=== PATIENT | female | born 1940 | race Caucasian/White ===

== ENCOUNTER → 2018-06-12 17:49 | Outpatient (CLI) | payer MEDICARE, BC, SELFPAY ==
[2018-06-12 23:14] LABS: TSH w/ Reflex to FT4 2.49 uIU/mL (0.47-4.68)
== END ==
PROVIDERS: PCP Family Medicine; Visit Provider Family Medicine
DX: L65.9 Nonscarring hair loss, unspecified (principal)
CPT/HCPCS: 36415; 84443

== ENCOUNTER → 2018-06-17 09:44 | Outpatient (CLI) | payer MEDICARE, BC, SELFPAY ==
--- NOTE | 2018-06-17 09:45 | DI.RAD.S_ITS ---
PROCEDURE: XR SHOULDER RT MIN 2V INDICATIONS: rt shoulder pain TECHNIQUE: 3 views of the shoulder were acquired. COMPARISON: None. FINDINGS: Bones: No fractures or dislocations. No suspicious bony lesions. Visualized ribs appear intact. Severe AC joint degeneration. There is also glenohumeral degenerative spurring. Soft tissues: No suspicious soft tissue calcifications. IMPRESSION: No fracture. Degenerative changes as above. Dictated by: Virgil Sadler M.D. on 06/17/2018 at 11:26 Approved by: Virgil Sadler M.D. on 06/17/2018 at 11:39
== END ==
PROVIDERS: PCP Family Medicine; Visit Provider Family Medicine
DX: M25.511 Pain in right shoulder (principal); M19.011 Primary osteoarthritis, right shoulder
CPT/HCPCS: 73030

== ENCOUNTER 2019-01-09 11:12 | Day surgery (SDC) | payer MEDICARE, BC, SELFPAY ==
[2019-01-08 11:35] VITALS: BMI 19.0
[2019-01-09] VITALS (15 sets, daily range): BP systolic 95–159; BP diastolic 51–76; PULSE 70–84; RESP 10–20; TEMP 36.8–37.5; O2SAT 93–98; BMI 17.2
[2019-01-09] MEDS: LACTATED RINGERS 1,000 ML 42 ML IV (12:07)
--- NOTE | 2019-01-09 12:42 | PM.PREOP ---
Pre-operative Note Interval Note History & Physical reviewed/Exam performed by Physician: Yes Changes to H&P: No
[2019-01-09] MEDS: CEFAZOLIN VIAL 1 GM in SODIUM CHLORIDE 0.9% 100 ML 200 ML IV (15:18)
[2019-01-09] MEDS: BUPIVACAINE 0.5% W/ EPI (PF) VIAL 30 ML INJ (15:54)
--- NOTE | 2019-01-09 16:16 | PM.OP.1 ---
Operative Date/Time/Diagnoses Date of procedure: 01/09/19 Time of procedure: 15:30 Pre-op diagnosis: Right distal radius fracture Post-op diagnosis: same Procedure & Clinicians Procedure: Open reduction internal fixation of a right distal radius fracture Same procedure as scheduled: Yes Indications: Right distal radius fracture Surgeon: Zain Montoya Computer Analyst Supervisor: Anabelle Santoyo Anesthesia Type: General Operative Notes Closure Type: primary Specimen(s): none sent Prosthetic devices, grafts, tissues, transplants, or devices: Arthrex distal radius plate Estimated Blood Loss (mL): 10 Blood products transfused: none Tourniquet time (min): 45 Procedure in detail: On date of service, patient was met in the holding area where the operative site was signed and witnessed by the OR staff. The surgery was once again discussed with the patient and any remaining questions or concerns were answered to the patient's full satisfaction. Time-out was performed verifying patient's name procedure and operative site. Patient was taken back to the operating theater and placed on the operating table in a supine position. Great care was taken to ensure that all bony prominences were appropriately padded. Well-padded tourniquet was placed up along the upper extremity. Another time-out was performed verifying patient's name, procedure, and operative site. The upper extremity was then prepped and draped in the normal sterile fashion. Esmarch was used to exsanguinate the limb and the tourniquet was turned up to 250 mm of mercury. Fifteen blade was used to expose the distal radius. An incision was made over the FCR tendons. The FCR tendon was retracted and the floor of the tendon was opened with a 15 blade. The FPL tendon and muscle belly was retracted ulnarly giving us good visualization of the pronator quadratus. The pronator quadratus was excised off the distal radius using the 15 blade and then finished with a periosteal elevator. Next the brachia radialis attachment to the radial styloid was released to help with overall reduction. Retractors were placed allowing us good visualization of the distal radius as well as the shaft. A reduction maneuver was performed and a K-wire was placed holding a provisional reduction of the intra-articular distal radius fracture. C-arm was brought in to verify overall reduction. Once we were satisfied with the overall reduction, a plate was placed and held provisionally with K-wires. C-arm was once again used to verify plate positioning as well as reduction. The plate was then fixated to the distal fragment using locking screws. Lateral C-arm views were used to verify that the screws were not intra-articular or broaching the dorsal cortex. At this point we are able to use the plate to help fine tune the overall reduction. Once we were satisfied with the overall reduction the plate was then secured to the shaft with a combination of locking and nonlocking screws. Final x-rays were obtained. The wound was copiously irrigated and closed in a layered fashion. The wrist and hand were cleaned dried dressed. Patient was placed into a splint and taken to the PACU in stable condition. Complications: none Condition: stable Disposition: PACU Plan for aftercare: No restrictions of range of motion of the fingers. When patient is placed in the removable brace she can begin range of motion exercises of the wrist.
[2019-01-09] MEDS: fentaNYL 100 MCG/2 ML INJ 50 MCG IV ×4 (16:51→17:36)
[2019-01-09] MEDS: OXYCODONE IR 5 MG TABLET PO (17:09)
== END 2019-01-09 19:00 | disposition home or self-care (01) ==
PROVIDERS: PCP Family Medicine; Visit Provider Orthopaedic Surgery
PROC: (CPT 25608; principal; 2019-01-09 15:15)
DX: S52.571A Other intraarticular fracture of lower end of right radius, initial encounter for closed fracture (principal); W19.XXXA Unspecified fall, initial encounter
CPT/HCPCS: 25608; J0690; J1100; J2405; J2704; J3010

== ENCOUNTER → 2019-06-05 11:28 | Outpatient (CLI) | payer MEDICARE, BC, SELFPAY ==
--- NOTE | 2019-06-05 | DI.MG.S_ITS ---
BILATERAL DIGITAL SCREENING MAMMOGRAM 3D/2D WITH CAD: 06/05/2019 CLINICAL: Routine screening. Comparison is made to exams dated: 05/30/2017 mammogram, 05/20/2015 mammogram, and 10/30/2012 mammogram - [facility]. The tissue of both breasts is heterogeneously dense. This may lower the sensitivity of mammography. Current study was also evaluated with a Computer Aided Detection (CAD) system. No significant masses, calcifications, or other findings are seen in either breast. There has been no significant interval change. IMPRESSION: NEGATIVE There is no mammographic evidence of malignancy. A 1 year screening mammogram is recommended. This exam was interpreted at Station ID: [id number]. NOTE: For mammograms, a report in lay terms will be sent to the patient. Approximately 15% of breast malignancies will not be visualized mammographically. In the management of a palpable breast mass, a negative mammogram must not discourage biopsy of a clinically suspicious lesion. Electronically Signed By: Leonardo porter/ruthie:06/05/2019 14:49:04 letter sent: Normal Exam ACR BI-RADS Category 1: Negative 3341F
== END ==
PROVIDERS: PCP Family Medicine; Visit Provider Family Medicine
DX: Z12.31 Encounter for screening mammogram for malignant neoplasm of breast (principal)
CPT/HCPCS: 77063; 77067

== ENCOUNTER → 2019-06-12 08:40 | Outpatient (CLI) | payer MEDICARE, BC, SELFPAY ==
[2019-06-12 09:21] LABS: Add Manual Diff / Slide Review NO; Basophils Absolute Auto 0 /uL (0-100); Eosinophils Absolute Auto 200 /uL (0-450); Eosinophils Percent Auto 3.5 % (2-4); Hematocrit 43.8 % (36-46); Hemoglobin 14.8 g/dL (12.0-16.0); Lymphocytes Absolute Auto 1700 /uL (1100-4500); Lymphocytes Percent Auto 34.8 % (25-40); Mean Corpuscular HGB Conc 33.9 % (30-36); Mean Corpuscular Hemoglobin 31.6 PG (26-34); Mean Corpuscular Volume 93.3 fL (80-100); Monocytes Absolute Auto 400 /uL (0-900); Monocytes Percent Auto 8.4 % (3-14); Neutrophils Absolute Auto 2500 /uL (1500-7000); Neutrophils Percent Auto 52.3 % (50-75); Platelet Count 264 X10^3/uL (150-400); Red Blood Cell Count 4.69 X10^6/uL (4.0-5.2); White Blood Cell Count 4.8 X10^3/uL (4.5-11.0)
[2019-06-12 09:38] LABS: Alanine Aminotransferase 18 IU/L (<35); Albumin 4.4 g/dL (3.5-5.0); Albumin Globulin Ratio 1.5 (1.0-2.8); Alkaline Phosphatase 69 U/L (38-126); Aspartate Aminotransferase 35 IU/L (14-36); Bilirubin Total 0.6 mg/dL (0.2-1.3); Blood Urea Nitrogen 16 mg/dL (7-17); Calcium 10.4 mg/dL (8.4-10.2); Carbon Dioxide 32 mmol/L (22-32); Chloride 106 mmol/L (98-107); Cholesterol 272 mg/dL (140-199); Estimated Glomerular Filt Rate > 60.0 mL/min (>60); Glucose 83 mg/dL (80-110); HDL Cholesterol 101 mg/dL (40-60); HEMOLYSIS < 15 (0-50); LDL Cholesterol Calculated 162 mg/dL (<100); Potassium 4.6 mmol/L (3.4-5.1); Sodium 143 mmol/L (137-145); Total Protein 7.4 g/dL (6.3-8.2); Triglycerides 45 mg/dL (35-150)
[2019-06-12 10:08] LABS: TSH w/ Reflex to FT4 3.48 uIU/mL (0.47-4.68)
== END ==
PROVIDERS: PCP Family Medicine; Visit Provider Family Medicine
DX: E78.5 Hyperlipidemia, unspecified (principal)
CPT/HCPCS: 36415; 80053; 80061; 84443; 85025

== ENCOUNTER → 2020-06-15 13:01 | Outpatient (CLI) | payer MEDICARE, BC, SELFPAY ==
[2020-06-15 13:55] LABS: Add Manual Diff / Slide Review NO; Basophils Absolute Auto 100 /uL (0-100); Eosinophils Absolute Auto 400 /uL (0-450); Eosinophils Percent Auto 3.1 % (2-4); Hematocrit 39.1 % (36-46); Lymphocytes Absolute Auto 1100 /uL (1100-4500); Lymphocytes Percent Auto 9.1 % (25-40); Mean Corpuscular HGB Conc 33.1 % (30-36); Mean Corpuscular Hemoglobin 30.5 PG (26-34); Mean Corpuscular Volume 92.2 fL (80-100); Monocytes Absolute Auto 600 /uL (0-900); Monocytes Percent Auto 5.3 % (3-14); Neutrophils Absolute Auto 9600 /uL (1500-7000); Neutrophils Percent Auto 81.5 % (50-75); Platelet Count 279 X10^3/uL (150-400); Red Blood Cell Count 4.24 X10^6/uL (4.0-5.2); Red Cell Distribution Width 13.6 % (11.6-14.8); White Blood Cell Count 11.7 X10^3/uL (4.5-11.0)
[2020-06-15 14:12] LABS: Alanine Aminotransferase 16 IU/L (<35); Albumin 3.8 g/dL (3.5-5.0); Albumin Globulin Ratio 1.2 (1.0-2.8); Alkaline Phosphatase 84 U/L (38-126); Aspartate Aminotransferase 27 IU/L (14-36); BUN Creatinine Ratio 25.8 (6-22); Bilirubin Total 0.6 mg/dL (0.2-1.3); Blood Urea Nitrogen 24 mg/dL (7-17); C-Reactive Protein Quant 5.4 mg/dL (<1.0); Calcium 11.6 mg/dL (8.4-10.2); Carbon Dioxide 32 mmol/L (22-32); Chloride 102 mmol/L (98-107); Estimated Glomerular Filt Rate 58.2 mL/min (>60); Globulin 3.3 g/dL (1.7-4.1); Glucose 144 mg/dL (80-110); HEMOLYSIS < 15 (0-50); Potassium 3.9 mmol/L (3.4-5.1); Sodium 137 mmol/L (137-145); Total Protein 7.1 g/dL (6.3-8.2)
[2020-06-15 17:33] LABS: Erythrocyte Sedimentation Rate 36 MM/HR (0-20)
== END ==
PROVIDERS: PCP Family Medicine; Referring Provider Family Medicine; Visit Provider Family Medicine
DX: E78.5 Hyperlipidemia, unspecified (principal); M79.10 Myalgia, unspecified site
CPT/HCPCS: 36415; 80053; 85025; 85651; 86140

== ENCOUNTER → 2020-06-29 08:15 | Outpatient (CLI) | payer MEDICARE, BC, SELFPAY ==
[2020-06-29 09:20] LABS: Alanine Aminotransferase 18 IU/L (<35); Albumin 3.4 g/dL (3.5-5.0); Albumin Globulin Ratio 1.1 (1.0-2.8); Alkaline Phosphatase 83 U/L (38-126); Aspartate Aminotransferase 21 IU/L (14-36); BUN Creatinine Ratio 23.3 (6-22); Bilirubin Total 0.4 mg/dL (0.2-1.3); Blood Urea Nitrogen 20 mg/dL (7-17); Calcium 10.3 mg/dL (8.4-10.2); Carbon Dioxide 34 mmol/L (22-32); Chloride 103 mmol/L (98-107); Cholesterol 240 mg/dL (140-199); Estimated Glomerular Filt Rate > 60.0 mL/min (>60); Globulin 3.1 g/dL (1.7-4.1); Glucose 81 mg/dL (80-110); HDL Cholesterol 90 mg/dL (40-60); HEMOLYSIS < 15 (0-50); LDL Cholesterol Calculated 135 mg/dL (<100); Potassium 4.4 mmol/L (3.4-5.1); Sodium 138 mmol/L (137-145); Total Protein 6.5 g/dL (6.3-8.2); Triglycerides 77 mg/dL (35-150)
[2020-06-30 11:36] LABS: Calcium 10.4 mg/dL (8.7-10.3); Parathyroid Hormone, Intact 44 pg/mL (15-65)
== END ==
PROVIDERS: PCP Family Medicine; Referring Provider Family Medicine; Visit Provider Family Medicine
DX: E83.52 Hypercalcemia (principal); E78.5 Hyperlipidemia, unspecified
CPT/HCPCS: 36415; 80053; 80061; 82310; 83970

== ENCOUNTER → 2020-08-07 08:57 | Outpatient (CLI) | payer MEDICARE, BC, SELFPAY ==
--- NOTE | 2020-08-07 | DI.MG.S_ITS ---
BILATERAL DIGITAL SCREENING MAMMOGRAM 3D/2D WITH CAD: 08/07/2020 CLINICAL: Routine screening. Comparison is made to exams dated: 06/05/2019 mammogram and 05/30/2017 mammogram - [facility]. The tissue of both breasts is heterogeneously dense. This may lower the sensitivity of mammography. Current study was also evaluated with a Computer Aided Detection (CAD) system. No significant masses, calcifications, or other findings are seen in either breast. There has been no significant interval change. IMPRESSION: NEGATIVE There is no mammographic evidence of malignancy. A 1 year screening mammogram is recommended. This exam was interpreted at Station ID: [id number]. NOTE: For mammograms, a report in lay terms will be sent to the patient. Approximately 15% of breast malignancies will not be visualized mammographically. In the management of a palpable breast mass, a negative mammogram must not discourage biopsy of a clinically suspicious lesion. Electronically Signed By: Janusz hargrove/ruthie:08/09/2020 09:34:49 letter sent: Normal Exam ACR BI-RADS Category 1: Negative [id number]
== END ==
PROVIDERS: PCP Family Medicine; Referring Provider Family Medicine; Visit Provider Family Medicine
DX: Z12.31 Encounter for screening mammogram for malignant neoplasm of breast (principal)
CPT/HCPCS: 77063; 77067

== ENCOUNTER → 2021-07-01 08:22 | Outpatient (CLI) | payer MEDICARE, BC, SELFPAY ==
[2021-07-01 09:06] LABS: Add Manual Diff / Slide Review NO; Basophils Absolute Auto 100 /uL (0-100); Basophils Percent Auto 1.2 % (0-2); Eosinophils Absolute Auto 200 /uL (0-450); Eosinophils Percent Auto 3.5 % (2-4); Hematocrit 42.3 % (36-46); Hemoglobin 14.1 g/dL (12.0-16.0); Lymphocytes Absolute Auto 1500 /uL (1100-4500); Lymphocytes Percent Auto 32.5 % (25-40); Mean Corpuscular HGB Conc 33.4 % (30-36); Mean Corpuscular Hemoglobin 30.7 PG (26-34); Monocytes Absolute Auto 400 /uL (0-900); Monocytes Percent Auto 8.2 % (3-14); Neutrophils Absolute Auto 2500 /uL (1500-7000); Neutrophils Percent Auto 54.6 % (50-75); Platelet Count 299 X10^3/uL (150-400); Red Cell Distribution Width 14.2 % (11.6-14.8); White Blood Cell Count 4.6 X10^3/uL (4.5-11.0)
[2021-07-01 09:24] LABS: Alanine Aminotransferase 12 IU/L (<35); Albumin Globulin Ratio 1.4 (1.0-2.8); Alkaline Phosphatase 124 U/L (38-126); Aspartate Aminotransferase 26 IU/L (14-36); BUN Creatinine Ratio 23.8 (6-22); Bilirubin Total 0.8 mg/dL (0.2-1.3); Blood Urea Nitrogen 19 mg/dL (7-17); Calcium 10.8 mg/dL (8.4-10.2); Carbon Dioxide 30 mmol/L (22-32); Chloride 104 mmol/L (98-107); Cholesterol 278 mg/dL (140-199); Estimated Glomerular Filt Rate > 60.0 mL/min (>60); Globulin 2.9 g/dL (1.7-4.1); Glucose 88 mg/dL (80-110); HDL Cholesterol 98 mg/dL (40-60); HEMOLYSIS < 15 (0-50); LDL Cholesterol Calculated 165 mg/dL (<100); Potassium 4.5 mmol/L (3.4-5.1); Sodium 139 mmol/L (137-145); Total Protein 6.9 g/dL (6.3-8.2); Triglycerides 76 mg/dL (35-150)
== END ==
PROVIDERS: PCP Family Medicine; Referring Provider Family Medicine; Visit Provider Family Medicine
DX: E78.2 Mixed hyperlipidemia (principal); E83.52 Hypercalcemia
CPT/HCPCS: 36415; 80053; 80061; 85025

== ENCOUNTER 2022-05-09 16:10 | Emergency (ER) | payer MEDICARE, BC, SELFPAY ==
[2022-05-09] VITALS (11 sets, daily range): BP systolic 122–173; BP diastolic 58–84; PULSE 65–84; RESP 18–33; TEMP 37.2; O2SAT 95–98
--- NOTE | 2022-05-09 16:26 | DI.RAD.S_ITS ---
PROCEDURE: XR CHEST 1V INDICATIONS: chest pain TECHNIQUE: One view of the chest was acquired. COMPARISON: None. FINDINGS: Surgical changes and devices: None. Lungs and pleura: Lungs are clear. No pleural effusions or pneumothorax. Mediastinum: Mediastinal contours appear normal. Heart size is normal. Bones and chest wall: No suspicious bony lesions. Overlying soft tissues appear unremarkable. IMPRESSION: No acute cardiopulmonary process demonstrated radiographically. Dictated by: Nahum Rico M.D. on 05/09/2022 at 16:53 Approved by: Nahum Rico M.D. on 05/09/2022 at 16:53
[2022-05-09 16:38] LABS: INR 1.1 (0.9-1.3)
[2022-05-09 16:40] LABS: Add Manual Diff / Slide Review NO; Basophils Absolute Auto 100 /uL (0-100); Eosinophils Absolute Auto 100 /uL (0-450); Eosinophils Percent Auto 1.6 % (2-4); Hematocrit 39.6 % (36-46); Hemoglobin 13.3 g/dL (12.0-16.0); Lymphocytes Absolute Auto 1300 /uL (1100-4500); Mean Corpuscular HGB Conc 33.7 % (30-36); Mean Corpuscular Hemoglobin 30.4 PG (26-34); Mean Corpuscular Volume 90.2 fL (80-100); Monocytes Absolute Auto 400 /uL (0-900); Monocytes Percent Auto 6.2 % (3-14); Neutrophils Absolute Auto 4200 /uL (1500-7000); Neutrophils Percent Auto 69.2 % (50-75); Platelet Count 255 X10^3/uL (150-400); Red Blood Cell Count 4.39 X10^6/uL (4.0-5.2); Red Cell Distribution Width 13.3 % (11.6-14.8); White Blood Cell Count 6.1 X10^3/uL (4.5-11.0)
[2022-05-09 16:41] LABS: PTT Partial Thromboplastin Tim 32 SECONDS (26-36)
[2022-05-09 16:46] LABS: Alanine Aminotransferase 17 IU/L (<35); Albumin 4.1 g/dL (3.5-5.0); Albumin Globulin Ratio 1.2 (1.0-2.8); Alkaline Phosphatase 71 U/L (38-126); Aspartate Aminotransferase 30 IU/L (14-36); BUN Creatinine Ratio 26.4 (6-22); Bilirubin Total 0.4 mg/dL (0.2-1.3); Blood Urea Nitrogen 19 mg/dL (7-17); Calcium 10.1 mg/dL (8.4-10.2); Carbon Dioxide 31 mmol/L (22-32); Chloride 101 mmol/L (98-107); Creatine Kinase 55 U/L (30-135); Estimated Glomerular Filt Rate > 60 mL/min (>60); Globulin 3.4 g/dL (1.7-4.1); Glucose 115 mg/dL (80-110); HEMOLYSIS < 15 (0-50); Lipase 86 U/L (23-300); Magnesium 2.2 mg/dL (1.6-2.3); Potassium 3.7 mmol/L (3.4-5.1); Sodium 140 mmol/L (137-145); Total Protein 7.5 g/dL (6.3-8.2)
[2022-05-09 16:55] LABS: Troponin I < 0.012 ng/mL (0.01-0.034)
--- NOTE | 2022-05-09 22:33 | ED_ITS ---
HPI - Dizziness General Chief Complaint: Dizziness Stated Complaint: dizzy Time Seen by Provider: 05/09/22 22:29 Source: patient Mode of arrival: Ambulatory History of Present Illness HPI Narrative: Patient is an 81-year-old female without significant past medical history presenting today with ongoing dizziness. She says that she feels dizzy and lightheaded sometimes when she stands up. She is not dizzy or lightheaded while sitting. She denies any fever chills. She states that the room does not spin. She sometimes falls but has not fallen recently. It has really been ongoing for number of weeks but maybe is getting little bit worse. She was seen evaluated 5 days ago at a walk-in clinic for the same. She says that she has had some ongoing chest pressure but this has been a ongoing for a number of months in her PCP some blood only knows about it. She currently does not have any chest pain pressure or shortness of breath. She denies any nausea or vomiting, no fever chills abdominal pain. Related Data Home Medications Medication Instructions Recorded Confirmed Calcium 500 + D 1 tab PO QDAY 11/27/17 05/03/22 Fish Oil 1 cap PO QDAY 11/27/17 05/03/22 coenzyme Q10 30 mg capsule (Co 30 mg PO DAILY 09/08/19 05/03/22 Q-10) Previous Rx's Medication Instructions Recorded ipratropium bromide 21 mcg (0.03 2 spray intranasal BID #30 mL 09/27/20 %) nasal spray acyclovir 400 mg tablet 800 mg PO 3 X DAY #35 tabs 01/19/22 Allergies Allergy/AdvReac Type Severity Reaction Status Date / Time latex [LATEX] Allergy Severe LOCAL RASH Verified 05/03/22 10:39 Review of Systems Review of Systems Narrative: GENERAL: Denies chills, fatigue, malaise, fever, sweats, travel HEENT: Denies sinus pain, ear pain, sore throat, difficulty swallowing, neck pain RESPIRATORY: Denies dyspnea, cough, wheezing, hemoptysis, sputum. CARDIOVASCULAR: See HPI GASTROINTESTINAL: Denies nausea, vomiting, abdominal pain, diarrhea, constipation, melena. : Denies dysuria, frequency, incontinence, hematuria, urinary retention, flank pain. MUSCULOSKELETAL: Denies weakness, joint pain, or bony pain SKIN: No rash, no erythema, no pruritus NEUROLOGIC: see HPI PSYCHIATRIC: No concerning psychosocial issues. 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) (04/25/11) Right wrist fracture (01/04/19) Skin cancer (~1997) Surgical History Anesthesia History of facelift (1999) History of hand surgery (~1999) History of hand surgery (~1999) Status post colposcopy (2010) Family History Brother Brain aneurysm Father Heart attack Social History marital status: household members: spouse Smoking Status: Never smoker alcohol intake: current Smoking Status: Never smoker alcohol intake frequency: 0-2 drinks per day Substance Use Type: does not use Exam Initial Vital Signs Initial Vital Signs: Vital Signs Temperature 98.9 F 05/09/22 16:13 Pulse Rate 84 05/09/22 16:13 Respiratory Rate 18 05/09/22 16:13 Blood Pressure 133/64 05/09/22 16:13 Pulse Oximetry 98 05/09/22 16:13 Oxygen Delivery Method 05/09/22 16:13 GENERAL: 81-year-old female overall appears well appears younger than stated age and in no acute distress. HEENT: Head atraumatic,EOMI, pupils reactive, face symmetric, moist mucous membranes CARDIOVASCULAR: Regular rate and rhythm without murmurs, rubs or gallops. RESPIRATORY: Breath sounds equal bilaterally, no wheezes rales or rhonchi. ABDOMEN: Soft, nontender. Normoactive bowel sounds all 4 quadrants. No guarding or rebound. EXTREMITIES: Normal range of motion, no clubbing or edema. Neurovascularly intact NEUROLOGICAL: Alert and oriented x4.Normal gait and speech. Cranial nerves II through XII grossly intact. Good efuiog-wr-rdja, good vlgd-lr-dmvj, strength equal bilaterally, no dysarthria or aphasia, sensation in tact to soft touch bilaterally, no visual changes, no facial droop SKIN: Warm, dry, no laceration, no petechiae, no rashes or lesions. Scores NIH Stroke Scale Level of Conciousness: Alert, keenly responsive Ask month/age: Answers both questions correctly. Open/close eyes, close hand: Performs both tasks correctly Best gaze horizontal: Normal Visual sanchez: No visual loss Facial palsy: Normal symetrical movement Left arm drift: No drift for full 10 sec Right arm drift: No drift for full 10 sec Left leg drift: No drift for full 5 sec Right leg drift: No drift for full 5 sec Limb ataxia: Absent Sensory on face/arms/legs: Normal, no sensory loss Best language: No aphasia, normal Dysarthria: Normal Extinction or inattention: No abnormality Total NIH Stroke scale score: 0 Course Orders Ordered: ED Orders 05/09/22 22:41 CT head/brain wo con Stat 05/09/22 22:58 Trop I [Troponin I] Stat Vital Signs Vital signs: Vital Signs - 8 hr 05/09/22 22:30 05/09/22 22:33 05/09/22 22:33 Pulse Rate 69 66 Respiratory Rate 33 H 29 H Blood Pressure 143/66 H Pulse Oximetry 97 05/09/22 22:45 05/09/22 22:45 05/09/22 22:55 Pulse Rate 66 Respiratory Rate Blood Pressure 138/66 149/72 H Pulse Oximetry 95 05/09/22 22:55 05/09/22 23:00 05/09/22 23:00 Pulse Rate 70 Respiratory Rate 23 Blood Pressure 145/72 H Pulse Oximetry 97 97 MDM - Dizziness Lab Data Result diagrams: 05/09/22 16:22 05/09/22 16:22 Labs: Lab Results 05/09/22 05/09/22 05/09/22 Range/Units 16:22 16:22 16:22 WBC 6.1 (4.5-11.0) X10^3/uL RBC 4.39 (4.0-5.2) X10^6/uL Hgb 13.3 (12.0-16.0) g/dL Hct 39.6 (36-46) % MCV 90.2 (80-100) fL MCH 30.4 (26-34) PG MCHC 33.7 (30-36) % RDW 13.3 (11.6-14.8) % Plt Count 255 (150-400) X10^3/uL Neut % (Auto) 69.2 (50-75) % Lymph % (Auto) 22.0 L (25-40) % [place] % (Auto) 6.2 (3-14) % Eos % (Auto) 1.6 L (2-4) % Baso % (Auto) 1.0 (0-2) % Neut # (Auto) 4200 (7291-2949) /uL Lymph # (Auto) 1300 (2670-8501) /uL [place] # (Auto) 400 (0-900) /uL Eos # (Auto) 100 (0-450) /uL Baso # (Auto) 100 (0-100) /uL PT 13.0 H (10.1-12.7) SECONDS INR 1.1 (0.9-1.3) APTT 32 (26-36) SECONDS Sodium 140 (137-145) mmol/L Potassium 3.7 (3.4-5.1) mmol/L Chloride 101 (98-107) mmol/L Carbon Dioxide 31 (22-32) mmol/L BUN 19 H (7-17) mg/dL Creatinine 0.72 (0.52-1.04) mg/dL Estimated GFR > 60 (>60) mL/min BUN/Creatinine Ratio 26.4 H (6-22) Glucose 115 H (80-110) mg/dL Calcium 10.1 (8.4-10.2) mg/dL Magnesium 2.2 (1.6-2.3) mg/dL Total Bilirubin 0.4 (0.2-1.3) mg/dL AST 30 (14-36) IU/L ALT 17 (<35) IU/L Alkaline Phosphatase 71 (38-126) U/L Total Creatine Kinase 55 (30-135) U/L CK-MB (CK-2) TNP CK-MB (CK-2) Rel Index TNP Troponin I < 0.012 (0.01-0.034) ng/mL Total Protein 7.5 (6.3-8.2) g/dL Albumin 4.1 (3.5-5.0) g/dL Globulin 3.4 (1.7-4.1) g/dL Albumin/Globulin Ratio 1.2 (1.0-2.8) Lipase 86 (23-300) U/L 05/09/22 Range/Units 22:58 WBC (4.5-11.0) X10^3/uL RBC (4.0-5.2) X10^6/uL Hgb (12.0-16.0) g/dL Hct (36-46) % MCV (80-100) fL MCH (26-34) PG MCHC (30-36) % RDW (11.6-14.8) % Plt Count (150-400) X10^3/uL Neut % (Auto) (50-75) % Lymph % (Auto) (25-40) % [place] % (Auto) (3-14) % Eos % (Auto) (2-4) % Baso % (Auto) (0-2) % Neut # (Auto) (0201-1788) /uL Lymph # (Auto) (0453-4564) /uL [place] # (Auto) (0-900) /uL Eos # (Auto) (0-450) /uL Baso # (Auto) (0-100) /uL PT (10.1-12.7) SECONDS INR (0.9-1.3) APTT (26-36) SECONDS Sodium (137-145) mmol/L Potassium (3.4-5.1) mmol/L Chloride (98-107) mmol/L Carbon Dioxide (22-32) mmol/L BUN (7-17) mg/dL Creatinine (0.52-1.04) mg/dL Estimated GFR (>60) mL/min BUN/Creatinine Ratio (6-22) Glucose (80-110) mg/dL Calcium (8.4-10.2) mg/dL Magnesium (1.6-2.3) mg/dL Total Bilirubin (0.2-1.3) mg/dL AST (14-36) IU/L ALT (<35) IU/L Alkaline Phosphatase (38-126) U/L Total Creatine Kinase (30-135) U/L CK-MB (CK-2) CK-MB (CK-2) Rel Index Troponin I < 0.012 (0.01-0.034) ng/mL Total Protein (6.3-8.2) g/dL Albumin (3.5-5.0) g/dL Globulin (1.7-4.1) g/dL Albumin/Globulin Ratio (1.0-2.8) Lipase (23-300) U/L Imaging Data Chest x-ray: Radiologist's Impression: [address] [address] XRay Report Signed Patient: Mendy Matthews MR#: [id number] : 1940 Acct:[id number] Age/Sex: 81 / F Date of Service: 05/09/22 Loc: ED Accession Number: [id number] ?? Procedure: XR chest 1V Ordering Provider: Dania Palumbo D.O. PROCEDURE:? XR CHEST 1V ? INDICATIONS:? chest pain ? TECHNIQUE:? One view of the chest was acquired.? ? COMPARISON:? None. ? FINDINGS:? ? Surgical changes and devices:? None.? ? Lungs and pleura:? Lungs are clear.? No pleural effusions or pneumothorax.? ? Mediastinum:? Mediastinal contours appear normal.? Heart size is normal.? ? Bones and chest wall:? No suspicious bony lesions.? Overlying soft tissues appear unremarkable.? ? IMPRESSION:? No acute cardiopulmonary process demonstrated radiographically. ? ? Dictated by: Nahum Rico M.D. on 05/09/2022 at 16:53 ? ? ECG Data Interpretation: Normal sinus rhythm rate 79 [place] interval 160 QRS 74 QTC 408 T-wave inversion noted in lead 3 and AVF with out ST elevations new from previous EKG in 20 MDM Narrative Medical decision making narrative: Patient has been having ongoing symptoms for some time symptoms of dizziness was worse today. However it does seem to be quite positional she is able to sit in bed read a book currently in the emergency department. She was previously checked out the walk-in clinic. Head CT is negative she really has no focal deficits. Blood work is overall reassuring without sign of infection. However she has had some chest pressure but not having in the emergency department EKG does have some concerning T-wave inversions. She has no ST elevation no chest pain and 2- troponins. At this time I do recommend outpatient follow-up in regards his to this could she has had some ongoing chest discomfort. It is unclear what is causing her dizziness and lightheadedness however that to have also sound in chronic. At this time patient feels comfortable going. S Email sent to PCP in regards to the outpatient stress test Discharge Plan Departure Patient Disposition: Home Clinical Impression: Light-headed Instructions: DI for Dizziness-Nonvertigo Activity Restrictions/Additional Instructions: *You have been diagnosed with lightheaded *What to do: At this time workup in the emergency department overall reassuring. However EKG was slightly concerning and I do recommend an outpatient stress test. It is likely not causing her lightheadedness or dizzin ess. *Continue to take medications as directed *Follow up with your primary care provider in 2-3 days or call [phone] *Return to ER if you should have a increasing chest discomfort dizziness falling weakness numbness tingling or any new, worsening or concerning symptoms Prescriptions: No Action coenzyme Q10 [Co Q-10] 30 mg capsule 30 mg PO DAILY ipratropium bromide 0.03 % spray,non-aerosol 2 spray intranasal BID Qty: 30 1RF Rx Instructions: administer into each nostril acyclovir 400 mg tablet 800 mg PO 3 X DAY Qty: 35 3RF Calcium 500 + D tablet 1 tab PO QDAY Fish Oil capsule 1 cap PO QDAY Referrals: Nahum Valenzuela MD [Primary Care Provider] - Visit Report Forms: Patient Portal/API
--- NOTE | 2022-05-09 22:41 | DI.CT.S_ITS ---
PROCEDURE: CT HEAD/BRAIN WO CON INDICATIONS: dizzy for weeks TECHNIQUE: Noncontrast 4.5 mm thick angled axial sections acquired from the foramen magnum to the vertex, with coronal and sagittal reformats. For radiation dose reduction, the following was used: automated exposure control, adjustment of mA and/or kV according to patient size. COMPARISON: [facility] Outside Film, CT, CT HEAD WITHOUT CONTRAST, 01/04/2019, 18:44. FINDINGS: Image quality: Excellent. CSF spaces: Basal cisterns are patent. No extra-axial fluid collections. There is mild cerebral volume loss, with resultant ventricular and sulcal prominence. Brain: No intracranial hemorrhage, mass, or mass effect. There are subcortical, periventricular and deep white matter hypodensities consistent with mild chronic small vessel ischemic changes. The aldana-white matter junction appears preserved. There is intracranial internal carotid artery atherosclerosis. Skull and face: Calvarium and visualized facial bones appear intact, without suspicious lesions. Sinuses: Visualized sinuses and mastoids are clear. IMPRESSION: 1. No acute intracranial abnormality. 2. Mild chronic white matter small vessel ischemic changes and cerebral volume loss. Dictated by: Leonardo Ch M.D. on 05/09/2022 at 23:27 Approved by: Leonardo Ch M.D. on 05/09/2022 at 23:29
[2022-05-09 23:27] LABS: Troponin I < 0.012 ng/mL (0.01-0.034)
== END 2022-05-10 00:20 | disposition home or self-care (01) ==
PROVIDERS: Emergency Medicine; Emergency Provider Emergency Medicine; PCP Family Medicine
DX: R42 Dizziness and giddiness (principal); R07.9 Chest pain, unspecified
CPT/HCPCS: 36415; 70450; 71045; 80053; 82550; 83690; 83735; 84484; 85025; 85610; 85730; 93005; 93010; 99283; 99284

== ENCOUNTER → 2022-06-08 08:15 | Outpatient (CLI) | payer MEDICARE, BC, SELFPAY ==
--- NOTE | 2022-06-08 08:18 | DI.NM.S_ITS ---
PROCEDURE: NM LEANN PERF SPECT REST & STR Rest and exercise myocardial perfusion SPECT with gated imaging and ejection fraction RADIOPHARMACEUTICAL: 11.4 mCi Tc-99m sestamibi IV at rest and 25.2 mCi Tc-99m sestamibi IV at peak exercise. A [id number]-usjefsgd was performed. INDICATIONS: Chest pressure and T wave inversion TECHNIQUE: Radiopharmaceutical was injected at peak stress test, and also at rest. SPECT images were obtained. SPECT myocardial perfusion images were displayed in short axis, horizontal long axis, and vertical long axis views. Gated images were reviewed using [employer] software. COMPARISON: None. CARDIAC STRESS: A standard Andrew treadmill exercise tolerance test was performed by the patient under the supervision of an attending staff. The patient exercised for 7 minutes and 0 seconds; 10.1 METS; functional aerobic impairment (RINA) is -47%. Hemodynamic data: There is normal blood pressure and heart rate response to exercise stress. Patient achieved 104% of maximum predicted heart rate at peak exercise. Symptoms: Patient denied chest pain during exercise. EKG: No diagnostic EKG changes of ischemia; occasional PACs. FINDINGS: Raw data: There is good myocardial labeling by radiotracer. No significant motion artifacts. Bkpz-dv-qcqke ratio is 0.28 (normal is less than 0.38 for sestamibi tracer, and less than 0.50 for thallium tracer). Left ventricle function: Gated images demonstrate normal left ventricle wall thickening. No segmental wall motion abnormality. No transient ischemic dilation; TID is 0.78 (normal less than 1.3). The left ventricle resting end-diastolic volume is 73 mL. Left ventricle stress ejection fraction is 75%; normal values are above 45%. Myocardial perfusion: There is normal distribution of activity in the left and right ventricular myocardium. No fixed or reversible perfusion defects. IMPRESSION: Low risk study. No evidence of exercise-induced ischemia or scar on ECG or SPECT imaging. Normal left ventricular function. Normal hemodynamic response to exercise. Very good exercise capacity. Dictated by: Griselda Mccullough D.O. on 06/08/2022 at 15:52 Approved by: Griselda Mccullough D.O. on 06/08/2022 at 15:57
--- NOTE | 2022-06-08 08:18 | DI.ECHO.S_ITS ---
[place] [facility]---------+ [facility] +---------+ : : [address] : : : : [id number] : : : : Phone: [phone]+ Echocardiogram Report + + :Name: ALBERT NEELY Study Date: 06/08/2022 Height: 63 in : :[facility] ReadingLocation: Weight: 98 lb : : Gender: Female BSA: 1.4 m2 : :: 1940 Age: 82 yrs BP: 127/71 mmHg: :Reason For Study: CHEST PRESSURE AND T WAVE INVERSION : :Ordering Physician: YESIKA, : :JARED Performed By: Marianna Quiñonez : :Referring: JARED [place] : + + Interpretation Summary The ejection fraction is estimated to be 55-60%. There is mild mitral regurgitation. There is mild to moderate aortic regurgitation. There is mild to moderate tricuspid regurgitation. The right ventricular systolic pressure is estimated to be at least 30 mmHg based on an estimated right atrial pressure of 3 mm Hg. Compared to the prior echo study, there has been an increase in the severity of aortic regurgitation. Compared to the prior echo exam, there has been an increase in TR severity. Procedure: A two-dimensional transthoracic echocardiogram with color flow and Doppler was performed. The study quality was technically adequate. Comparison is made with the echocardiogram of 05/30/2017. The patient was in sinus rhythm with heart rates between 67-75 bpm during the exam. Left Ventricle: The left ventricle is normal in size and wall thickness. The ejection fraction is estimated to be 55-60%. Left ventricular wall motion is normal. Right Ventricle: The right ventricle is normal in size and function. Atria: The left atrial size is normal. Right atrial size is normal. There is no Doppler evidence for an interatrial shunt. Mitral Valve: There is mild mitral regurgitation. Aortic Valve: The aortic valve is trileaflet. The aortic valve opens well. There is no aortic valve stenosis. There is mild to moderate aortic regurgitation. Compared to the prior echo study, there has been an increase in the severity of aortic regurgitation. Tricuspid Valve: The tricuspid valve is normal in structure and function. There is mild to moderate tricuspid regurgitation. The right ventricular systolic pressure is estimated to be at least 30 mmHg based on an estimated right atrial pressure of 3 mm Hg. Compared to the prior echo exam, there has been an increase in TR severity. Pulmonic Valve: The pulmonic valve leaflets are thin and pliable; valve motion is normal. There is no pulmonic valvular regurgitation. Great Vessels: The aortic root is normal size. The dimensions of the ascending aorta are normal. The IVC is of normal diameter and collapses greater than 50% with a sniff. This suggests a low right atrial pressure of 3 mm Hg. Pericardium/ Pleura There is no pericardial effusion. There is no pleural effusion. MMode/2D Measurements & Calculations LVIDd: 4.7 cm LVOT diam: 2.3 cm LVIDs: 3.3 cm Ao root diam: 3.5 cm FS: 29.1 % asc Aorta Diam: 3.3 cm IVSd: 0.80 cm Ao Arch Diam (Prox Trans): 2.6 cm LVPWd: 0.66 cm LV figueroa. diameter/BSA (cm/m^2): 3.3 LV sys. diameter/BSA (cm/m^2): 2.3 LA A2 area: 13.5 cm2 RA long axis: 4.4 cm LA A4 area: 13.9 cm2 RA area: 14.5 cm2 LA length (vol): 4.2 cm RA vol: 40.5 ml LA vol: 37.5 ml RA : 28.4 ml/m2 LA vol index: 26.3 ml/m2 IVC diam: 0.81 cm RVD1 (basal): 3.3 cm RVD2 (mid): 2.4 cm TAPSE: 2.2 cm Doppler Measurements & Calculations Ao V2 max: 142.8 cm/sec LVOT Max Andres: 97.2 cm/sec Ao V2 mean: 87.8 cm/sec LV V1 max P.8 mmHg Ao max P.2 mmHg LV V1 VTI: 20.5 cm Ao mean P.6 mmHg JEANNE(I,D): 3.4 cm2 Ao V2 VTI: 24.7 cm JEANNE(V,D): 2.8 cm2 sev ratio: 0.83 JEANNE indexed to BSA (cm^2/m^2): 2.4 MV E max andres: 58.4 cm/sec TR max andres: 258.8 cm/sec MV A max andres: 69.6 cm/sec TR max P.8 mmHg MV E/A: 0.84 PA V2 max: 61.2 cm/sec Med Peak E' Andres: 7.3 cm/sec PA V2 mean: 43.8 cm/sec E/E' med: 8.0 PA mean P.86 mmHg Lat Peak E' Andres: 8.6 cm/sec PA pr(Accel): 27.6 mmHg E/E' lat: 6.8 E/e' average: 7.4 MV dec time: 0.21 sec SV(LVOT): 83.7 ml Reading Physician:03:10 PM
[2022-06-08 09:46] LABS: COVID19 -Nasal RAPID Negative (Negative)
== END ==
PROVIDERS: PCP Family Medicine; Referring Provider Family Medicine; Visit Provider Family Medicine
DX: R94.31 Abnormal electrocardiogram [ECG] [EKG] (principal); R07.89 Other chest pain; Z20.822 Contact with and (suspected) exposure to COVID-19; I08.3 Combined rheumatic disorders of mitral, aortic and tricuspid valves
CPT/HCPCS: 78452; 87635; 93017; 93306; A9502

== ENCOUNTER → 2022-07-05 07:13 | Outpatient (CLI) | payer MEDICARE, BC, SELFPAY ==
[2022-07-05 09:17] LABS: Cholesterol 255 mg/dL (140-199); HDL Cholesterol 61 mg/dL (40-60); LDL Cholesterol Calculated 171 mg/dL (<100); Triglycerides 113 mg/dL (35-150)
== END ==
PROVIDERS: PCP Family Medicine; Referring Provider Family Medicine; Visit Provider Family Medicine
DX: E78.5 Hyperlipidemia, unspecified (principal)
CPT/HCPCS: 36415; 80061

== ENCOUNTER 2022-07-30 20:46 | Emergency (ER) | payer MEDICARE, OTHER, SELFPAY ==
[2022-07-30 20:50] VITALS: BP 151/67; PULSE 87; RESP 16; TEMP 37.5; O2SAT 96; BMI 17.6
--- NOTE | 2022-07-30 22:51 | ED.LOWEXIN ---
HPI - Extremity Injury (Lower) General Chief Complaint: Extremity Injury, Lower Stated Complaint: right foot pain x2 days/ankle swollen Time Seen by Provider: 07/30/22 22:51 Source: patient Mode of arrival: Ambulatory Limitations: no limitations History of Present Illness HPI Narrative: This is an 82-year-old female comes in with complaint of right foot pain for the past 2 days. Patient states she noticed SundayJuly 28 that she started having pain on the underside of her foot in the soft tissue. She does not recall any injuries, she does not recall stepping on anything or hurting her foot in any way. Patient states since then the pain has persisted has gotten little bit worse and now she has some redness over the lateral portion of the foot and radiating over the top of the foot. Patient states she has not had similar symptoms in the past. She states she takes some vitamins daily but denies any prescription medications. She has had stem cell injections in her shoulder and knee for orthopedic purposes and hyaluronic acid in her right knee for orthopedic purposes. She denies numbness, tingling or weakness. She is pain with weight-bearing. She does not have any current suspicion for foreign body or noticed any cuts over the skin. Related Data Home Medications Medication Instructions Recorded Confirmed Calcium 500 + D 1 tab PO QDAY 11/27/17 06/13/22 coenzyme Q10 30 mg capsule (Co 30 mg PO DAILY 09/08/19 06/13/22 Q-10) Previous Rx's Medication Instructions Recorded acyclovir 400 mg tablet 800 mg PO 3 X DAY #35 tabs 01/19/22 clindamycin HCl 300 mg capsule 300 mg PO QID #28 caps 07/30/22 Allergies Allergy/AdvReac Type Severity Reaction Status Date / Time latex [LATEX] Allergy Severe LOCAL RASH Verified 06/19/22 13:35 Pollen, dust Allergy Mild Sneezing Uncoded 06/19/22 13:36 Review of Systems Review of Systems ROS Unobtainable: All systems reviewed & are unremarkable except as noted in HPI and below Patient History Medical History Acne (~1949) Anemia (~1949) Cataract (~2011) Chicken pox (~1944) Hayfever (~1944) Hearing loss (~2012) Herpes (~1979) Laceration Measles (~1945) Neck pain Osteoarthritis (~2003) 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) (04/25/11) Right wrist fracture (01/04/19) Skin cancer (~1997) Surgical History Anesthesia History of facelift (1999) History of hand surgery (~1999) History of hand surgery (~1999) Status post colposcopy (2010) Family History Brother Brain aneurysm Father Heart attack Social History marital status: household members: spouse Smoking Status: Never smoker alcohol intake: current Smoking Status: Never smoker alcohol intake frequency: 0-2 drinks per day Substance Use Type: does not use Exam Narrative Exam Narrative: GENERAL: Alert and oriented x three, elderly female in mild distress HEENT: Head normocephalic, atraumatic, EOMI, pupils reactive, face symmetric, moist mucous membranes NECK: Supple, full range of motion CARDIOVASCULAR: Regular rate and rhythm without murmurs, rubs or gallops. RESPIRATORY: Breath sounds equal bilaterally, no wheezes rales or rhonchi. EXTREMITIES: Normal range of motion, no clubbing. Neurovascularly intact. Patient is mildly tender over the soft tissue of the underside of her right foot on the medial side, there is no bony tenderness on examination. There is some slight erythema tracking upwards, there is no fluctuance warmth or induration. Patient is particularly warm to the touch. Patient has 2+ dorsalis pedis. Normal sensation throughout. Cap refills less than 2 seconds in all 5 toes. Normal range of motion normal plantar and dorsiflexion. Patient has pain when she stands directly on the foot but not well-seated. NEUROLOGICAL: Cranial nerves II through XII grossly intact. Moving all extremities SKIN: Warm, dry, no petechiae, no rashes or lesions otherwise noted. Initial Vital Signs Initial Vital Signs: Vital Signs Temperature 99.5 F 07/30/22 20:50 Pulse Rate 87 07/30/22 20:50 Respiratory Rate 16 07/30/22 20:50 Blood Pressure 151/67 H 07/30/22 20:50 Pulse Oximetry 96 07/30/22 20:50 Oxygen Delivery Method 07/30/22 20:50 Course Orders Ordered: ED Orders 07/30/22 22:59 XR foot RT min 3V Stat Discontinued Medications Clindamycin HCl (Clindamycin 150 Mg Capsule) 300 mg PO NOW ONE Stop: 07/30/22 23:32 Last Admin: 07/30/22 23:43 Dose: 300 mg Documented By: GIORGIO Vital Signs Vital signs: Vital Signs - 8 hr 07/30/22 20:50 07/30/22 23:45 Temperature 99.5 F Pulse Rate 87 79 Respiratory Rate 16 16 Blood Pressure 151/67 H 188/76 H Pulse Oximetry 96 98 Oxygen Delivery Method Room Air Room Air MDM - Extremity Injury (Lower) Imaging Data Extremity x-ray #1: Radiologist's Impression: Close Foot X-Ray (Signed) Arjun Keita - 07/30/22 Myocardial Perfusion Scan Nuc Med (Signed) Griselda Mccullough - 06/08/22 Echocardiogram Ultrasound (Signed) Jai Lindsey - 06/08/22 EKG Rpt. 05/12/[address] (Signed) Leonardo Ch - 05/09/22 Chest X-Ray (Signed) Nahum Rico - 05/09/22 Mammogram Screening (Signed) Janusz Bills - 08/07/20 Mammogram Screening (Signed) Leonardo Ch - 06/05/19 EKG Rpt. 07/01/18 Shoulder X-Ray (Signed) Virgil Sadler - 06/17/18 Launch?[address] [address] XRay Report Signed Patient: Mendy Matthews MR#: [id number] : 1940 Acct:[id number] Age/Sex: 82 / F Date of Service: 07/30/22 Loc: ED Accession Number: [id number] ?? Procedure: XR foot RT min 3V Ordering Provider: Dania Palumbo D.O. PROCEDURE:? XR FOOT RT MIN 3V ? INDICATIONS:? foot pain, swelling, midfoot underside running up ? TECHNIQUE:? 3 views of the foot were acquired.? ? COMPARISON:? [facility], , FOOT 3V RIGHT, 12/19/2012, 12:49. ? FINDINGS:? ? Bones:? No fractures or dislocations.? The previously seen distal 5th metatarsal fracture has healed.? No suspicious bony lesions.? Degenerative changes are seen, including along the 1st ray and the Lisfranc joint. ? Soft tissues:? No tibiotalar joint effusion.? Achilles tendon appears normal.? ? ? IMPRESSION:? No significant plain film abnormality is seen, with underlying degenerative changes noted.. ? ? Dictated by: Arjun Keita M.D. on 07/30/2022 at 22:39 ? ? Approved by: Arjun Keita M.D. on 07/30/2022 at 22:40?? MDM Narrative Medical decision making narrative: This is an 82-year-old female with right foot pain, swelling that started on the plantar side in the soft tissue with some redness moving upwards. No bony tenderness. X-rays obtained to evaluate for any fracture or foreign body although patient does not recall any injury based on her age this was felt appropriate. Gout seems less likely based on the location is more in the soft tissue and not over the bony prominences. Cellulitis is a possibility patient started on antibiotics. Return precautions discussed. Discharge Plan Departure Patient Disposition: Home Clinical Impression: Cellulitis of foot Instructions: DI for Cellulitis -- Adult Activity Restrictions/Additional Instructions: Please follow-up for recheck if your symptoms are not improving this week. The formal radiology report from her x-ray is still pending. I will try to call you if there is a discrepancy between what I see this evening and with the radiologist reads. You may take Tylenol up to a 1000 mg every 6 hours as needed for pain. Take antibiotics until completely gone. [facility] [place]. Please return for worsening symptoms increasing redness, swelling, pain, new numbness or tingling, other discoloration of her foot or leg, or other new or concerning changes. Prescriptions: New clindamycin HCl 300 mg capsule 300 mg PO QID Qty: 28 0RF No Action coenzyme Q10 [Co Q-10] 30 mg capsule 30 mg PO DAILY acyclovir 400 mg tablet 800 mg PO 3 X DAY Qty: 35 3RF Calcium 500 + D tablet 1 tab PO QDAY Referrals: Nahum Valenzuela MD [Primary Care Provider] -
--- NOTE | 2022-07-30 22:59 | DI.RAD.S_ITS ---
PROCEDURE: XR FOOT RT MIN 3V INDICATIONS: foot pain, swelling, midfoot underside running up TECHNIQUE: 3 views of the foot were acquired. COMPARISON: [facility], , FOOT 3V RIGHT, 12/19/2012, 12:49. FINDINGS: Bones: No fractures or dislocations. The previously seen distal 5th metatarsal fracture has healed. No suspicious bony lesions. Degenerative changes are seen, including along the 1st ray and the Lisfranc joint. Soft tissues: No tibiotalar joint effusion. Achilles tendon appears normal. IMPRESSION: No significant plain film abnormality is seen, with underlying degenerative changes noted.. Dictated by: Arjun Keita M.D. on 07/30/2022 at 22:39 Approved by: Arjun Keita M.D. on 07/30/2022 at 22:40
[2022-07-30] MEDS: CLINDAMYCIN 150 MG CAPSULE 300 MG PO (23:43)
[2022-07-30 23:45] VITALS: BP 188/76; PULSE 79; RESP 16; O2SAT 98
== END 2022-07-30 23:48 | disposition home or self-care (01) ==
PROVIDERS: Emergency Provider Emergency Medicine; PCP Family Medicine
DX: L03.115 Cellulitis of right lower limb (principal)
CPT/HCPCS: 73630; 99283

== ENCOUNTER → 2022-09-27 11:19 | Outpatient (CLI) | payer MEDICARE, OTHER, SELFPAY ==
--- NOTE | 2022-09-27 11:21 | DI.MG.S_ITS ---
BILATERAL DIGITAL SCREENING MAMMOGRAM 3D/2D WITH CAD: 09/27/2022 CLINICAL: Routine screening. Comparison is made to exams dated: 08/07/2020 mammogram, 06/05/2019 mammogram, and 05/30/2017 mammogram - [facility]. Both breasts are heterogeneously dense, which may obscure small masses (category c / 51-75% glandular tissue). Current study was also evaluated with a Computer Aided Detection (CAD) system. No significant masses, calcifications, or other findings are seen in either breast. There has been no significant interval change. IMPRESSION: NEGATIVE There is no mammographic evidence of malignancy. A 1 year screening mammogram is recommended. Based on the Tyrer Cuzick model (a risk assessment model) the patient's lifetime risk is 1.5% and her 10 year risk is 0.0%. According to the ACR, ACS, and NCCN guidelines, an annual breast MRI exam along with mammogram is recommended if the patient's lifetime risk is 20% or greater. This exam was interpreted at Station ID: [id number]. NOTE: For mammograms, a report in lay terms will be sent to the patient. Approximately 15% of breast malignancies will not be visualized mammographically. In the management of a palpable breast mass, a negative mammogram must not discourage biopsy of a clinically suspicious lesion. Electronically Signed By: Nahum Rico M.D., jr/ruthie:09/28/2022 13:18:48 letter sent: Normal Exam ACR BI-RADS Category 1: Negative [id number]
== END ==
PROVIDERS: PCP Family Medicine; Referring Provider Family Medicine; Visit Provider Family Medicine
DX: Z12.31 Encounter for screening mammogram for malignant neoplasm of breast (principal)
CPT/HCPCS: 77063; 77067

== ENCOUNTER 2022-12-05 05:59 | Emergency (ER) | payer MEDICARE, OTHER, SELFPAY ==
[2022-12-05 06:08] VITALS: BP 150/70; PULSE 76; RESP 16; TEMP 36.6; O2SAT 98; BMI 17.6
[2022-12-05 06:17] VITALS: O2SAT 91
--- NOTE | 2022-12-05 06:17 | DI.CT.S_ITS ---
PROCEDURE: CT HEAD/BRAIN WO CON INDICATIONS: fall with head injury TECHNIQUE: Noncontrast 4.5 mm thick angled axial sections acquired from the foramen magnum to the vertex, with coronal and sagittal reformats. For radiation dose reduction, the following was used: automated exposure control, adjustment of mA and/or kV according to patient size. COMPARISON: [facility], CT, CT HEAD/BRAIN WO CON, 05/09/2022, 22:51. FINDINGS: Image quality: Excellent. CSF spaces: Basal cisterns are patent. No extra-axial fluid collections. The ventricles are symmetric in size and shape. Brain: No intracranial bleeds or masses. There is cerebral volume loss for age, with resultant ventricular and sulcal prominence. There are periventricular and deep white matter chronic small vessel ischemic changes. There is intracranial internal carotid artery atherosclerosis. Skull and face: Calvarium and visualized facial bones appear intact, without suspicious lesions. Sinuses: Visualized sinuses and mastoids are clear. IMPRESSION: No acute intracranial pathology. Dictated by: Mark Waters M.D. on 12/05/2022 at 8:18 Approved by: Mark Waters M.D. on 12/05/2022 at 8:19
--- NOTE | 2022-12-05 06:17 | DI.RAD.S_ITS ---
PROCEDURE: XR RIBS LT MIN 3V W CXR1V INDICATIONS: fall with rib pain TECHNIQUE: 2 views of the left ribs were acquired, along with a single view chest. COMPARISON: None. FINDINGS: Surgical changes and devices: None. Bones and chest wall: No fractures or dislocations. No suspicious bony lesions. Overlying soft tissues appear unremarkable. Lungs and pleura: No pleural effusions or pneumothorax. Lungs appear clear. Mediastinum: Mediastinal contours appear normal. Heart size is normal. IMPRESSION: No displaced fracture or pneumothorax. Dictated by: Mark Waters M.D. on 12/05/2022 at 8:16 Approved by: Mark Waters M.D. on 12/05/2022 at 8:16
[2022-12-05] MEDS: LIDOCAINE PATCH 1 EACH ADH..PATCH TOP (06:22)
--- NOTE | 2022-12-05 06:31 | ED_ITS ---
HPI - Fall <Humberto Pringle DO - Last Filed: 12/12/22 03:08> General Chief Complaint: Fall Stated Complaint: fallen twice in 2 days and have brusies all over Time Seen by Provider: 12/05/22 06:07 Source: patient Mode of arrival: Ambulatory History of Present Illness HPI Narrative: 82-year-old female nonsmoker with no prescription medications presents for evaluations of injuries suffered during 2 falls in the past few days. She states that with her initial fall she had been crawling out on the branch of a tree in order to trim a limb that was obstructing her view and slipped and fell suffering minor injuries and abrasions to her right anterior spaulding and right forearm. The following day she was working in her home in on a ladder that was 27 in high and was reaching up above her head to adjust a picture frame and while holding it over her head she toppled backwards landing on her back. She did strike the right side of her head but denies any loss of consciousness and states she has full recall of the event. She denies any neck pain and has full painless range of motion. She denies abdominal pain or lower extremity injury. She does have some bruising on her left elbow but admits to a full painless range of motion. Her primary area of complaint is left-sided lower ribs where she complains of a sharp and stabbing pain that is worse with motion, palpation and deep breath. She denies shortness of breath and has had no hemoptysis. Related Data Home Medications Medication Instructions Recorded Confirmed Calcium 500 + D 1 tab PO QDAY 11/27/17 11/16/22 Allergies Allergy/AdvReac Type Severity Reaction Status Date / Time latex [LATEX] Allergy Severe LOCAL RASH Verified 11/16/22 14:44 Pollen, dust Allergy Mild Sneezing Uncoded 11/16/22 14:44 Review of Systems <DO Cortney Ramos Last Filed: 12/12/22 03:08> Review of Systems Narrative: GENERAL: Denies chills, fatigue, malaise, fever, sweats. HEENT: Denies sinus pain, ear pain, sore throat, difficulty swallowing, di zziness. RESPIRATORY: Denies dyspnea, cough, wheezing, hemoptysis, sputum. CARDIOVASCULAR: Denies chest pain, palpitations, orthopnea, edema, GASTROINTESTINAL: Denies nausea, vomiting, abdominal pain, diarrhea, constipation, melena. : Denies dysuria, frequency, incontinence, hematuria, urinary retention. MUSCULOSKELETAL: See HPI SKIN: See HPI NEUROLOGIC: Denies weakness, headache, numbness, change in speech, confusion, seizures, incoordination. PSYCHIATRIC: No concerning psychosocial issues. 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) (04/25/11) Right wrist fracture (01/04/19) Skin cancer (~1997) Surgical History Anesthesia History of facelift (1999) History of hand surgery (~1999) History of hand surgery (~1999) Status post colposcopy (2010) Family History Brother Brain aneurysm Father Heart attack Social History marital status: household members: spouse Smoking Status: Never smoker alcohol intake: current Smoking Status: Never smoker alcohol intake frequency: 0-2 drinks per day Substance Use Type: does not use Exam <Humberto Pringle DO - Last Filed: 12/12/22 03:08> Narrative Exam Narrative: GENERAL: [82] year old patient appears stated age. Well-developed patient, in minimal distress, GCS 15 HEAD: 2 cm contusion right parietal region of scalp, no abrasion or laceration, no other obvious injury, no evidence of depressed skull fracture EYES: Pupils equal round and reactive. No hyphema Extraocular motions intact. No scleral icterus. No injection or drainage. ENT: Nose without bleeding, purulent drainage. No nasal septal hematoma Throat without erythema, tonsillar hypertrophy or exudate. Airway patent. No hemotympanum NECK: Trachea midline. Non tender, no step-offs, crepitance, pain with axial loading CARDIOVASCULAR: Regular rate and rhythm without murmurs, gallops, or rubs. Tender to palpate left lateral ribs, no crepitance, subcu emphysema. She has pain only on the ribs and palpating inferior to the ribs she has no tenderness RESPIRATORY: Clear to auscultation. Breath sounds equal bilaterally. No wheezes, rales, or rhonchi. GASTROINTESTINAL: Abdomen soft, non-tender, nondistended. EXTREMITIES: No edema or joint tenderness. BACK: Nontender without deformity or crepitance. No flank tenderness. NEURO: AOx3. SKIN: No rash or erythema of visible areas Initial Vital Signs Initial Vital Signs: Vital Signs Temperature 97.8 F 12/05/22 06:08 Pulse Rate 76 12/05/22 06:08 Respiratory Rate 16 12/05/22 06:08 Blood Pressure 150/70 H 12/05/22 06:08 Pulse Oximetry 98 12/05/22 06:08 Oxygen Delivery Method Room Air 12/05/22 06:08 <Silvina Perales DO - Last Filed: 12/05/22 07:51> Initial Vital Signs Initial Vital Signs: Vital Signs Temperature 97.8 F 12/05/22 06:08 Pulse Rate 76 12/05/22 06:08 Respiratory Rate 16 12/05/22 06:08 Blood Pressure 150/70 H 12/05/22 06:08 Pulse Oximetry 98 12/05/22 06:08 Oxygen Delivery Method Room Air 12/05/22 06:08 Course <DO Cortney Ramos Last Filed: 12/12/22 03:08> Orders Ordered: Discontinued Medications Lidocaine (Lidocaine Patch 1 Each Adh..Patch) 1 each TOP NOW ONE Stop: 12/05/22 06:20 Last Admin: 12/05/22 06:22 Dose: 1 each Documented By: Vital Signs Vital signs: Vital Signs - 8 hr 12/05/22 06:08 12/05/22 06:17 12/05/22 06:41 Temperature 97.8 F Pulse Rate 76 70 Respiratory Rate 16 Blood Pressure 150/70 H Pulse Oximetry 98 91 97 Oxygen Delivery Method Room Air 12/05/22 07:00 12/05/22 07:30 12/05/22 07:38 Temperature Pulse Rate 71 68 69 Respiratory Rate Blood Pressure Pulse Oximetry 97 97 97 Oxygen Delivery Method 12/05/22 07:38 Temperature Pulse Rate Respiratory Rate Blood Pressure 140/63 Pulse Oximetry Oxygen Delivery Method <Silvina Perales DO - Last Filed: 12/05/22 07:51> Orders Ordered: Discontinued Medications Lidocaine (Lidocaine Patch 1 Each Adh..Patch) 1 each TOP NOW ONE Stop: 12/05/22 06:20 Last Admin: 12/05/22 06:22 Dose: 1 each Documented By: Vital Signs Vital signs: Vital Signs - 8 hr 12/05/22 06:08 12/05/22 06:17 12/05/22 06:41 Temperature 97.8 F Pulse Rate 76 70 Respiratory Rate 16 Blood Pressure 150/70 H Pulse Oximetry 98 91 97 Oxygen Delivery Method Room Air 12/05/22 07:00 12/05/22 07:30 12/05/22 07:38 Temperature Pulse Rate 71 68 69 Respiratory Rate Blood Pressure Pulse Oximetry 97 97 97 Oxygen Delivery Method 12/05/22 07:38 Temperature Pulse Rate Respiratory Rate Blood Pressure 140/63 Pulse Oximetry Oxygen Delivery Method <Silvina Perales DO - Last Filed: 12/05/22 07:51> Imaging Data CT scan - head: Radiologist's Impression: Preliminary report: No acute intracranial finding Chest x-ray: Radiologist's Impression: No acute findings MDM Narrative Medical decision making narrative: Patient signed out to me by Dr. Pringle of seen evaluated patient myself. 82-year-old female fell backwards off ladder. She is got some bruising and scrapes. Head CT chest x-ray and rib x-ray are negative. She is tender in her left lower ribs. No fracture. Recommended supportive care Tylenol Motrin as needed Discharge Plan Departure Patient Disposition: Home Clinical Impression: Contusion of rib Instructions: DI for Rib Contusion, How to Prevent Falls Activity Restrictions/Additional Instructions: *You have been diagnosed with rib contusion *What to do: Light activity no strenuous activity no ladders. Expect to be sore. Heating pad as needed *Continue to take medications as directed Tylenol 650 mg every 4-6 hours if needed for [id number] pain Ibuprofen 400 mg every 6-8 hours if needed for iyhi-nt-jegdmuul pain *Follow up with your primary care provider in 2-3 days or call [phone] *Return to ER if you should have increasing pain vomiting weakness numbness tingling or any new, worsening or concerning symptoms Prescriptions: No Action Calcium 500 + D tablet 1 tab PO QDAY Referrals: Nahum Valenzuela MD [Primary Care Provider] - Stand Alone Forms: Patient Portal/API
[2022-12-05 06:41] VITALS: PULSE 70; O2SAT 97
[2022-12-05 07:00] VITALS: PULSE 71; O2SAT 97
[2022-12-05 07:30] VITALS: PULSE 68; O2SAT 97
[2022-12-05 07:38] VITALS: BP 140/63; PULSE 69; O2SAT 97
== END 2022-12-05 07:55 | disposition home or self-care (01) ==
PROVIDERS: Emergency Provider Emergency Medicine; PCP Family Medicine
DX: S20.212A Contusion of left front wall of thorax, initial encounter (principal); S00.03XA Contusion of scalp, initial encounter; W11.XXXA Fall on and from ladder, initial encounter
CPT/HCPCS: 70450; 71101; 99283; 99284

== ENCOUNTER → 2023-01-16 09:25 | Outpatient (CLI) | payer MEDICARE, OTHER, SELFPAY ==
[2023-01-16 12:55] LABS: Vitamin B12 911 pg/mL (239-931)
== END ==
PROVIDERS: PCP Family Medicine; Referring Provider Physician Assistant; Visit Provider Physician Assistant
DX: R53.83 Other fatigue (principal); G47.33 Obstructive sleep apnea (adult) (pediatric); R26.89 Other abnormalities of gait and mobility
CPT/HCPCS: 36415; 82607; 84443

== ENCOUNTER 2023-02-18 05:59 | Emergency (ER) | payer MEDICARE, OTHER, SELFPAY ==
[2023-02-18 06:05] VITALS: BP 173/70; PULSE 79; RESP 18; TEMP 37; O2SAT 95; BMI 17.6
--- NOTE | 2023-02-18 06:06 | ED.GENADULT ---
HPI - General Adult General Chief complaint: Skin/Abscess/Foreign Body Stated complaint: Skin rash, painful Time Seen by Provider: 02/18/23 06:06 History of Present Illness HPI narrative: 82-year-old female nonsmoker presents for evaluation of an itchy rash most notable on her arms but is noted somewhere on her medial left knee. She states that she started having trouble few days ago after gardening which is not something she normally does. She has had no trouble breathing or swallowing. She denies any GI complaints such as nausea, vomiting or diarrhea. She has experienced some relief with hydrocortisone cream. She denies any new medications. She denies any face, tongue, lip or throat swelling. She is otherwise well and free of complaint Related Data Home Medications Medication Instructions Recorded Confirmed Calcium 500 + D 1 tab PO QDAY 11/27/17 01/16/23 loratadine 10 mg tablet (Claritin) 10 mg PO DAILY PRN seasonal 01/16/23 01/16/23 allergies Previous Rx's Medication Instructions Recorded methylprednisolone 4 mg tablets in See Rx Instructions PO .COMPLEX 02/18/23 a dose pack (Medrol (Armando)) #21 ea Allergies Allergy/AdvReac Type Severity Reaction Status Date / Time latex [LATEX] Allergy Severe LOCAL RASH Verified 01/16/23 08:51 Pollen, dust Allergy Mild Sneezing Uncoded 01/16/23 08:51 Review of Systems Review of Systems Narrative: GENERAL: Denies chills, fatigue, malaise, fever, sweats. HEENT: Denies sinus pain, ear pain, sore throat, difficulty swallowing, dizziness. RESPIRATORY: Denies dyspnea, cough, wheezing, hemoptysis, sputum. CARDIOVASCULAR: Denies chest pain, palpitations, orthopnea, edema, GASTROINTESTINAL: Denies nausea, vomiting, abdominal pain, diarrhea, constipation, melena. : Denies dysuria, frequency, incontinence, hematuria, urinary retention. MUSCULOSKELETAL: denies weakness, joint pain, or bony pain SKIN: See HPI NEUROLOGIC: Denies weakness, headache, numbness, change in speech, confusion, seizures, incoordination. PSYCHIATRIC: No concerning psychosocial issues. 12 point review of systems is negative except for those stated above Patient History Medical History Acne (~1949) Anemia (~1949) Cataract (~2011) Chicken pox (~1945) Hayfever (~1944) Hearing loss (~2012) Herpes (~1979) Hypercalcemia Laceration Measles (~1944) Neck pain Osteoarthritis (~2003) 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) (04/25/11) Right wrist fracture (01/04/19) Skin cancer (~1997) Surgical History Anesthesia History of facelift (1999) History of hand surgery (~1999) History of hand surgery (~1999) Status post colposcopy (2010) Family History Brother Brain aneurysm Father Heart attack Social History marital status: household members: spouse Smoking Status: Never smoker alcohol intake: current Smoking Status: Never smoker alcohol intake frequency: 0-2 drinks per day Substance Use Type: does not use Exam Narrative Exam Narrative: GENERAL: [82] year old patient appears stated age. Well-developed patient, in no obvious distress HEAD: Atraumatic. Normocephalic. EYES: Pupils equal round and reactive. Extraocular motions intact. No scleral icterus. No injection or drainage. ENT: No intraoral involvement, no mucosal sloughing Nose without bleeding, purulent drainage. Throat without erythema, tonsillar hypertrophy or exudate. Airway patent. NECK: Trachea midline. Non tender CARDIOVASCULAR: Regular rate and rhythm without murmurs, gallops, or rubs. RESPIRATORY: Clear to auscultation. Breath sounds equal bilaterally. No wheezes, rales, or rhonchi. GASTROINTESTINAL: Abdomen soft, non-tender, nondistended. EXTREMITIES: No edema or joint tenderness. BACK: Nontender without deformity or crepitance. No flank tenderness. NEURO: AOx3. SKIN: Blanching pruritic, slightly raised rash most notable on right forearm, also left arm. None noted on chest, abdomen or back. Perhaps a small lesion on left earlobe. No blisters. Negative Nikolsky sign. Initial Vital Signs Initial Vital Signs: Vital Signs Temperature 98.6 F 02/18/23 06:05 Pulse Rate 79 02/18/23 06:05 Respiratory Rate 18 02/18/23 06:05 Blood Pressure 173/70 H 02/18/23 06:05 Pulse Oximetry 95 02/18/23 06:05 Oxygen Delivery Method Room Air 02/18/23 06:05 Course Orders Ordered: Discontinued Medications Famotidine (Famotidine 20 Mg Tablet) 20 mg PO NOW ONE Stop: 02/18/23 06:16 Last Admin: 02/18/23 06:17 Dose: 20 mg Documented By: JASMYNE Medical Decision Making MDM Narrative Medical decision making narrative: [82] year old patient presents with itchy rash on forearms after gardening Multiple etiologies for patient's symptoms considered including, but not limited to: [contact dermatitis vs. rhus vs. allergic reaction vs. other] Prior Charts reviewed in our EMR Primary Historian: patient Patient's history and physical exam are reassuring. Skin reaction noted on arms after gardening, no systemic complaints, no trouble swallowing or breathing. Only on exposed portions skin. She denies any new medications and is otherwise well. Findings and discharge diagnosis discussed with patient/family followed by verbalization of understanding Return precautions discussed with patient/family whom verbalize understanding of diagnosis and plan Discharge Plan Departure Patient Disposition: Home Clinical Impression: Contact allergic reaction Instructions: DI for Atopic Dermatitis-Adult Activity Restrictions/Additional Instructions: *You have been diagnosed with [allergic reaction] *What to do: *Please continue to take your regular medications as directed. [ x] New medication prescriptions sent to your pharmacy: [[facility] ] [ ] New medication written as a paper prescription [ ] No new medications given *Please consider the routine use of over the counter antihistamines over the next few days 1. H1 blockers: Benadryl (Diphenhydramine), Zyrtec (Cetirizine), Monica (Fexofenadine) or Claritin (Loratadine) along with, 2. H2 blockers: Famotidine or Cimetidine *If you can please avoid what triggered your reaction today *Please follow up with your primary care provider in 2-3 days, call for an appointment. Let them know you were seen in the Emergency Department and that we ask that you be seen in follow up. We will electronically transmit a record of today's note if your PCP is in our system *If you do not have a primary care provider please contact the [facility] Resource line at [phone]. They will ask some questions about your medical history and help get you set up with a doctor in the community. *Return to Emergency Department if you should have any new, worsening or concerning symptoms, such as swelling of tongue, throat, trouble breathing, or other concerning symptoms Prescriptions: New methylprednisolone [Medrol (Armando)] 4 mg tablets,dose pack See Rx Instructions .ROUTE .COMPLEX Qty: 21 0RF Rx Instructions: orally per package directions No Action loratadine [Claritin] 10 mg tablet 10 mg PO DAILY PRN (Reason: seasonal allergies) Calcium 500 + D tablet 1 tab PO QDAY Referrals: Nahum Valenzuela MD [Primary Care Provider] - Stand Alone Forms: Patient Portal/API
[2023-02-18] MEDS: FAMOTIDINE 20 MG TABLET PO (06:17)
== END 2023-02-18 06:32 | disposition home or self-care (01) ==
PROVIDERS: Emergency Provider Emergency Medicine; PCP Family Medicine
DX: L23.9 Allergic contact dermatitis, unspecified cause (principal)
CPT/HCPCS: 99283; A9270

== ENCOUNTER → 2023-06-26 11:45 | Outpatient (CLI) | payer MEDICARE, OTHER, SELFPAY ==
--- NOTE | 2023-06-26 | DI.MRI.S_ITS ---
PROCEDURE: MR KNEE RT WO CON INDICATIONS: Unilateral primary osteoarthritis, right knee TECHNIQUE: Noncontrast sagittal PD fast spin echo and T2 fast spin echo with fat saturation, sagittal 3-D FLASH with fat saturation; coronal T1 spin echo and PD fast spin echo with fat saturation, and axial PD fast spin echo with fat saturation through the knee. COMPARISON: None. FINDINGS: Image quality: Excellent. There is a complex tear involving the entire medial meniscus with meniscal truncation present suggesting a longstanding tear. There is a horizontal tear involving the body of the patient's lateral meniscus. ACL and PCL, collateral ligaments, and the extensor mechanism appear within normal limits. 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 There is mild chondromalacia involving the articular surface of the lateral compartment. No significant knee joint effusion is seen. No Marvin's cyst is identified. There is subchondral cyst formation and reactive marrow edema in the medial tibial plateau.. IMPRESSION: 1. Complex tear involving the entire medial meniscus extending to superior and inferior joint surfaces with meniscal truncation suggesting longstanding tear and meniscal remodeling. 2. 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 3. Moderate chondromalacia patellofemoral joint. 4. Mild chondromalacia articular surfaces of the lateral compartment. 5. Horizontal tear involving the body of the patient's lateral meniscus. 6. Reactive marrow edema and subchondral cyst formation in the medial tibial plateau. Dictated by: Kendall Melgoza M.D. on 06/27/2023 at 9:50 Approved by: Kendall Melgoza M.D. on 06/27/2023 at 9:56
== END ==
PROVIDERS: PCP Family Medicine; Referring Provider Orthopaedic Surgery; Visit Provider Orthopaedic Surgery
DX: M17.11 Unilateral primary osteoarthritis, right knee (principal); S83.241A Other tear of medial meniscus, current injury, right knee, initial encounter; M22.41 Chondromalacia patellae, right knee; S83.281A Other tear of lateral meniscus, current injury, right knee, initial encounter; M85.461 Solitary bone cyst, right tibia and fibula
CPT/HCPCS: 73721

== ENCOUNTER → 2023-08-13 10:27 | Outpatient (CLI) | payer MEDICARE, OTHER, SELFPAY ==
--- NOTE | 2023-08-13 10:29 | DI.RAD.S_ITS ---
PROCEDURE: XR HIP W PEL IF DONE LT 2V INDICATIONS: left hip pain TECHNIQUE: AP pelvis with lateral view(s) of the left hip(s). COMPARISON: [facility], , HIP 2V LEFT, 12/29/2014, 13:14. FINDINGS: Bones: No fractures or dislocations. Pelvic ring appears intact. No suspicious bony lesions. DJD of the lower lumbar spine is noted. Soft tissues: The visualized bowel gas pattern is normal. No suspicious soft tissue calcifications. IMPRESSION: No acute fracture or subluxation seen Dictated by: Rasheed Jain M.D. on 08/13/2023 at 12:49 Approved by: Rasheed Jain M.D. on 08/13/2023 at 12:51
== END ==
PROVIDERS: PCP Family Medicine; Referring Provider Family Medicine; Visit Provider Family Medicine
DX: M47.816 Spondylosis without myelopathy or radiculopathy, lumbar region (principal); M25.552 Pain in left hip; G47.33 Obstructive sleep apnea (adult) (pediatric); E78.5 Hyperlipidemia, unspecified
CPT/HCPCS: 73502

== ENCOUNTER → 2023-08-14 09:14 | Outpatient (CLI) | payer MEDICARE, OTHER, SELFPAY ==
[2023-08-14 10:17] LABS: Add Manual Diff / Slide Review NO; Basophils Absolute Auto 0 /uL (0-100); Basophils Percent Auto 0.7 % (0-2); Eosinophils Absolute Auto 100 /uL (0-450); Eosinophils Percent Auto 2.5 % (2-4); Hematocrit 43.6 % (36-46); Hemoglobin 14.6 g/dL (12.0-16.0); Lymphocytes Absolute Auto 1700 /uL (1100-4500); Lymphocytes Percent Auto 35.3 % (25-40); Mean Corpuscular HGB Conc 33.5 % (30-36); Mean Corpuscular Hemoglobin 31.2 PG (26-34); Mean Corpuscular Volume 92.9 fL (80-100); Monocytes Absolute Auto 400 /uL (0-900); Monocytes Percent Auto 7.8 % (3-14); Neutrophils Absolute Auto 2600 /uL (1500-7000); Neutrophils Percent Auto 53.7 % (50-75); Platelet Count 249 X10^3/uL (150-400); Red Blood Cell Count 4.69 X10^6/uL (4.0-5.2); White Blood Cell Count 4.9 X10^3/uL (4.5-11.0)
[2023-08-14 10:22] LABS: Alanine Aminotransferase 15 IU/L (<35); Albumin 4.2 g/dL (3.5-5.0); Albumin Globulin Ratio 1.4 (1.0-2.8); Alkaline Phosphatase 60 U/L (38-126); Aspartate Aminotransferase 28 IU/L (14-36); BUN Creatinine Ratio 24.7 (6-22); Bilirubin Total 0.9 mg/dL (0.2-1.3); Blood Urea Nitrogen 19 mg/dL (7-17); Calcium 10.7 mg/dL (8.4-10.2); Carbon Dioxide 30 mmol/L (22-32); Chloride 101 mmol/L (98-107); Cholesterol 277 mg/dL (140-199); Estimated Glomerular Filt Rate > 60 mL/min (>60); Glucose 85 mg/dL (80-110); HDL Cholesterol 98 mg/dL (40-60); HEMOLYSIS < 15 (0-50); LDL Cholesterol Calculated 161 mg/dL (<100); Potassium 4.6 mmol/L (3.4-5.1); Sodium 137 mmol/L (137-145); Total Protein 7.2 g/dL (6.3-8.2); Triglycerides 90 mg/dL (35-150)
[2023-08-14 10:47] LABS: TSH w/ Reflex to FT4 2.62 uIU/mL (0.47-4.68)
[2023-08-17 11:10] LABS: Calcium 10.3 mg/dL (8.7-10.3); Parathyroid Hormone, Intact 48 pg/mL (15-65)
== END ==
PROVIDERS: PCP Family Medicine; Referring Provider Family Medicine; Visit Provider Family Medicine
DX: M25.552 Pain in left hip (principal); E78.5 Hyperlipidemia, unspecified; G47.33 Obstructive sleep apnea (adult) (pediatric); E83.52 Hypercalcemia
CPT/HCPCS: 36415; 80053; 80061; 82310; 83970; 84443; 85025

== ENCOUNTER → 2023-12-05 08:15 | Outpatient (CLI) | payer MEDICARE, OTHER, SELFPAY ==
--- NOTE | 2023-12-05 08:16 | DI.MG.S_ITS ---
BILATERAL DIGITAL SCREENING MAMMOGRAM 3D/2D WITH CAD: 12/05/2023 CLINICAL: Routine screening. Comparison is made to exams dated: 09/27/2022 mammogram, 08/07/2020 mammogram, and 06/05/2019 mammogram - [facility]. Both breasts are heterogeneously dense, which may obscure small masses (category c / 51-75% glandular tissue). Current study was also evaluated with a Computer Aided Detection (CAD) system. No significant masses, calcifications, or other findings are seen in either breast. There has been no significant interval change. IMPRESSION: NEGATIVE There is no mammographic evidence of malignancy. A 1 year screening mammogram is recommended. Based on the Tyrer Cuzick model (a risk assessment model) the patient's lifetime risk is 1.1% and her 10 year risk is 0.0%. According to the ACR, ACS, and NCCN guidelines, an annual breast MRI exam along with mammogram is recommended if the patient's lifetime risk is 20% or greater. This exam was interpreted at Station ID: [id number]. NOTE: For mammograms, a report in lay terms will be sent to the patient. Approximately 15% of breast malignancies will not be visualized mammographically. In the management of a palpable breast mass, a negative mammogram must not discourage biopsy of a clinically suspicious lesion. Electronically Signed By: Janusz hargrove/ruthie:12/05/2023 08:57:14 letter sent: Normal Exam ACR BI-RADS Category 1: Negative [id number]
== END ==
PROVIDERS: PCP Family Medicine; Referring Provider Family Medicine; Visit Provider Family Medicine
DX: Z12.31 Encounter for screening mammogram for malignant neoplasm of breast (principal); R92.333 Mammographic heterogeneous density, bilateral breasts
CPT/HCPCS: 77063; 77067

== ENCOUNTER 2023-12-23 05:12 | Emergency (ER) | payer MEDICARE, OTHER, SELFPAY ==
[2023-12-23] VITALS (10 sets, daily range): BP systolic 136–154; BP diastolic 62–94; PULSE 58–73; RESP 15–23; TEMP 37.1; O2SAT 93–100; BMI 17.6
--- NOTE | 2023-12-23 05:38 | ED_ITS ---
HPI - Chest Pain <Dania Palumbo DO - Last Filed: 12/24/23 03:58> General Chief Complaint: Chest Pain Stated Complaint: chest tightening Time Seen by Provider: 12/23/23 05:28 Source: patient, RN notes reviewed and old records reviewed Mode of arrival: Ambulatory Limitations: no limitations History of Present Illness HPI narrative: This is an 83-year-old female with history of SOY who had inspire surgery for sleep apnea. Patient states she woke this morning had an episode about 15 or 20 minutes where she felt like something was sitting on her chest described as substernal without any other radiation to the neck back arms or belly. She states she had a similar episode about 2 months ago which also woke her up from sleep at about 330 in the morning but she was able to fall asleep that is time and did not have it evaluated. She states no fevers cough cold cough or congestive symptoms. No shortness of breath she states symptoms have totally resolved. Denies any nausea or vomiting, no diaphoresis. No swelling of extremities, denies any issues bowel movements or urination. She does state she has a cough that has been present for some time. She states no daily prescription medications. She has had the inspire surgery to replace her CPAP. She is allergy to latex but no other drug allergies. No tobacco, she is 1 glass of port nightly, no recreational drugs. She states her father of an HI in his 50s but did smoke multiple packs per day. She has had a stress test in the past year which he states was negative. She follows with Dr. Valenzuela as her primary care physician. Related Data Home Medications Medication Instructions Recorded Confirmed Calcium 500 + D 1 tab PO QDAY 11/27/17 08/20/23 loratadine 10 mg tablet (Claritin) 10 mg PO DAILY PRN seasonal 01/16/23 08/20/23 allergies Previous Rx's Medication Instructions Recorded aspirin 325 mg tablet 325 mg PO DAILY #30 tabs 12/23/23 Allergies Allergy/AdvReac Type Severity Reaction Status Date / Time latex [LATEX] Allergy Severe LOCAL RASH Verified 08/09/23 08:24 Pollen, dust Allergy Mild Sneezing Uncoded 08/09/23 08:24 Review of Systems <DO Cortney Colin Last Filed: 12/24/23 03:58> Review of Systems ROS Unobtainable: All systems reviewed & are unremarkable except as noted in HPI and below Patient History <Dania Palumbo DO - Last Filed: 12/24/23 03:58> Medical History Hypercalcemia Right wrist fracture (01/04/19) Herpes (~1979) Anemia (~1950) Acne (~1949) Cataract (~2011) Chicken pox (~1944) Hearing loss (~2012) Hayfever (~1944) Measles (~1944) Osteoarthritis (~2003) Skin cancer (~1997) 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) (04/25/11) Neck pain Laceration Surgical History Anesthesia History of facelift (1999) History of hand surgery (~1999) History of hand surgery (~1999) Status post colposcopy (2010) Family History Brother Brain aneurysm Father Heart attack Social History marital status: household members: spouse Smoking Status: Never smoker alcohol intake: current Smoking Status: Never smoker alcohol intake frequency: 0-2 drinks per day Substance Use Type: does not use Exam <Dania Palumbo DO - Last Filed: 12/24/23 03:58> Narrative Exam Narrative: GENERAL: Alert and oriented x three, thin, elderly female no acute distress. HEENT: Head normocephalic, atraumatic, EOMI, pupils reactive, face symmetric, moist mucous membranes NECK: Supple, full range of motion CARDIOVASCULAR: Regular rate and rhythm without murmurs, rubs or gallops. No JVD. No edema bilateral lower extremities. RESPIRATORY: Breath sounds equal bilaterally, no wheezes rales or rhonchi. No tachypnea or accessory muscle use. ABDOMEN: Soft, nontender. Normoactive bowel sounds all 4 quadrants. No guarding or rebound, rigidity, no mass : No CVA tenderness EXTREMITIES: Normal range of motion, no clubbing or edema. Neurovascularly intact NEUROLOGICAL: Cranial nerves II through XII grossly intact. Moving all extremities SKIN: Warm, dry, no petechiae, no rashes or lesions. Initial Vital Signs Initial Vital Signs: Vital Signs Temperature 98.7 F 12/23/23 05:20 Pulse Rate 62 12/23/23 05:20 Respiratory Rate 15 12/23/23 05:20 Blood Pressure 154/94 H 12/23/23 05:20 Pulse Oximetry 98 12/23/23 05:20 Oxygen Delivery Method Room Air 12/23/23 05:20 <Paul Maier MD - Last Filed: 12/23/23 22:32> Initial Vital Signs Initial Vital Signs: Vital Signs Temperature 98.7 F 12/23/23 05:20 Pulse Rate 62 12/23/23 05:20 Respiratory Rate 15 12/23/23 05:20 Blood Pressure 154/94 H 12/23/23 05:20 Pulse Oximetry 98 12/23/23 05:20 Oxygen Delivery Method Room Air 12/23/23 05:20 Course <Dania Palumbo DO - Last Filed: 12/24/23 03:58> Orders Ordered: Discontinued Medications Aspirin (Aspirin 81 Mg Chew Tab) 324 mg PO NOW ONE Stop: 12/23/23 05:41 Last Admin: 12/23/23 06:41 Dose: Not Given Documented By: JASMYNE Vital Signs Vital signs: Vital Signs - 8 hr 12/23/23 05:20 12/23/23 05:22 12/23/23 05:30 Temperature 98.7 F Pulse Rate 62 64 Respiratory Rate 15 Blood Pressure 154/94 H 149/87 H Pulse Oximetry 98 100 Oxygen Delivery Method Room Air 12/23/23 05:30 12/23/23 06:00 12/23/23 06:00 Temperature Pulse Rate 65 60 Respiratory Rate 18 18 Blood Pressure 140/67 Pulse Oximetry 96 97 Oxygen Delivery Method 12/23/23 06:30 12/23/23 06:30 Temperature Pulse Rate 61 Respiratory Rate 20 Blood Pressure 154/65 H Pulse Oximetry 98 Oxygen Delivery Method <Paul Maier MD - Last Filed: 12/23/23 22:32> Orders Ordered: Discontinued Medications Aspirin (Aspirin 81 Mg Chew Tab) 324 mg PO NOW ONE Stop: 12/23/23 05:41 Last Admin: 12/23/23 06:41 Dose: Not Given Documented By: JASMYNE Vital Signs Vital signs: Vital Signs - 8 hr 12/23/23 05:20 12/23/23 05:22 12/23/23 05:30 Temperature 98.7 F Pulse Rate 62 64 Respiratory Rate 15 Blood Pressure 154/94 H 149/87 H Pulse Oximetry 98 100 Oxygen Delivery Method Room Air 12/23/23 05:30 12/23/23 06:00 12/23/23 06:00 Temperature Pulse Rate 65 60 Respiratory Rate 18 18 Blood Pressure 140/67 Pulse Oximetry 96 97 Oxygen Delivery Method 12/23/23 06:30 12/23/23 06:30 Temperature Pulse Rate 61 Respiratory Rate 20 Blood Pressure 154/65 H Pulse Oximetry 98 Oxygen Delivery Method MDM - Chest Pain <Dania Palumbo, - Last Filed: 12/24/23 03:58> Lab Data 12/23/23 05:36 12/23/23 05:36 Labs: Lab Results 12/23/23 12/23/23 Range/Units 05:36 07:36 WBC 4.4 L (4.5-11.0) X10^3/uL RBC 4.60 (4.0-5.2) X10^6/uL Hgb 14.4 (12.0-16.0) g/dL Hct 43.2 (36-46) % MCV 93.9 (80-100) fL MCH 31.3 (26-34) PG MCHC 33.3 (30-36) % RDW 13.9 (11.6-14.8) % Plt Count 202 (150-400) X10^3/uL Neut % (Auto) 52.2 (50-75) % Lymph % (Auto) 32.0 (25-40) % [place] % (Auto) 10.2 (3-14) % Eos % (Auto) 4.8 H (2-4) % Baso % (Auto) 0.8 (0-2) % Neut # (Auto) 2300 (6973-6663) /uL Lymph # (Auto) 1400 (9821-7963) /uL [place] # (Auto) 400 (0-900) /uL Eos # (Auto) 200 (0-450) /uL Baso # (Auto) 0 (0-100) /uL PT 11.3 (9.4-12.5) SECONDS INR 1.0 (0.9-1.3) APTT 34 (25.1-36.5) SECONDS Sodium 140 (137-145) mmol/L Potassium 3.8 (3.4-5.1) mmol/L Chloride 107 (98-107) mmol/L Carbon Dioxide 30 (22-32) mmol/L BUN 16 (7-17) mg/dL Creatinine 0.69 (0.52-1.04) mg/dL Estimated GFR > 60 (>60) mL/min BUN/Creatinine Ratio 23.2 H (6-22) Glucose 85 (80-110) mg/dL Calcium 10.3 H (8.4-10.2) mg/dL Magnesium 2.1 (1.6-2.3) mg/dL Total Bilirubin 0.7 (0.2-1.3) mg/dL AST 30 (14-36) IU/L ALT 18 (<35) IU/L Alkaline Phosphatase 73 (38-126) U/L Total Creatine Kinase 92 (30-135) U/L Troponin I < 0.012 < 0.012 (0.01-0.034) ng/mL Total Protein 7.3 (6.3-8.2) g/dL Albumin 4.3 (3.5-5.0) g/dL Globulin 3.0 (1.7-4.1) g/dL Albumin/Globulin Ratio 1.4 (1.0-2.8) Lipase 106 (23-300) U/L Imaging Data Chest x-ray: Radiologist's Impression: Mendy Matthews??83??F??1940 ? Allergy/Adv: latex, [Pollen, dust] Close Chest X-Ray (Signed) Nick Grajeda - 12/23/23 Mammogram Screening (Signed) Janusz Bills - 12/05/23 Hip X-Ray (Signed) Rasheed Jain - 08/13/23 Knee MRI (Signed) Kendall Melgoza - 06/26/23 Ribs X-Ray (Signed) Mark Waters - 12/05/[address] (Signed) Mark Waters - 12/05/22 Mammogram Screening (Signed) Nahum Rico - 09/27/22 Foot X-Ray (Signed) Arjun Keita - 07/30/22 Myocardial Perfusion Scan Nuc Med (Signed) Griselda Mccullough - 06/08/22 Echocardiogram Ultrasound (Signed) Jai Lindsey - 06/08/[address] (Signed) Leonardo Ch - 05/09/22 Chest X-Ray (Signed) RicoNahum - 05/09/22 Mammogram Screening (Signed) Janusz Bills - 08/07/20 Mammogram Screening (Signed) Leonardo Ch - 06/05/19 Shoulder X-Ray (Signed) Virgil Sadler - 06/17/18 [facility] [address] [address] XRay Report Signed Patient: Mendy Matthews MR#: [id number] : 1940 Acct:[id number] Age/Sex: 83 / F Date of Service: 12/23/23 Loc: ED Accession Number: [id number] Procedure: XR chest 1V Ordering Provider: Dania Palumbo D.O. PROCEDURE: XR CHEST 1V INDICATIONS: chest pain TECHNIQUE: One view of the chest was acquired. COMPARISON: [facility], XR CHEST 1V, 05/09/2022, 16:42. [facility], CHEST 1 VIEW, 02/27/2016, 9:21. FINDINGS: Surgical changes and devices: Right chest generator device with leads projecting cephalad. Lungs and pleura: Lungs appear clear. Prominent lung volumes. No pleural effusions or pneumothorax. Mediastinum: Mediastinal contours appear normal. Heart size is normal. Bones and chest wall: No suspicious bony lesions. Suspect prior left 9th rib fracture. Overlying soft tissues appear unremarkable. IMPRESSION: No acute cardiopulmonary abnormality is seen. Dictated by: Nick Grajeda M.D. on 12/23/2023 at 6:56 Approved by: Nick Grajeda M.D. on 12/23/2023 at 7:00 ECG Data Attestation: I personally reviewed and interpreted this ECG as follows: Prior ECG tracings: available for review Interpretation: Patient has prior EKG from 02/27/2016 which appears similar to today. Today's EKG shows a rate of 64, MO 164 QRS is 78 QTC 410. Her most recent prior EKG from 05/09/2022 did show some T-wave inversion 2 3 AVF and lateral leads but is not present today and was not present in 2016. MDM Narrative Medical decision making narrative: 83-year-old with so sternal chest pressure that woke her from sleep lasted 15-20 minutes and then resolved. She has had 1 prior episode 2 months ago that also woke her from sleep. She has not had any additional episodes. Review patient's EMR does show she had a myocardial perfusion test that was a low risk study with normal left ventricular function in May of 2022. Her echo at that time showed an EF of 50-55%. Labs today show white count of 4.4, hemoglobin of 14.4 with platelets of 202, INR of 1, sodium 140 potassium 3.8 chloride of 107 CO2 of 30 BUN 16 creatinine 0.69 glucose 85 calcium 10.3, LFTs are negative CK is 92. Troponin is less than 0.012 Chest x-ray, prelim read is negative. EKG, shows no acute changes today. Patient signed out to Dr. Maier while awaiting repeat troponin. Darrion, 12/23/2023 7:00 a.m., received sign-out from Dr. Palumbo, repeat troponin and disposition plan pending. 83-year-old female had 15 minutes of chest discomfort on wakening, substernal, nonradiating, without associated nausea vomiting or diaphoresis, resolved by itself without specific treatment, EKG looks similar to a 2016 comparison study, no obvious ST segment elevation or depression changes, patient believes she might have had a stress test couple of years ago with Dr. Valenzuela. Repeat troponin pending. Assumed care Repeat troponin also nonmeasurable negative. No recurrence of chest pain. Case discussed with cross covering physician Dr. Cherry, who will pass on clinical information to his partner PCP Dr. Valenzuela, patient instructed to call the office on Sunday, likely to be scheduled for outpatient chemical stress testing. Aspirin not listed on cardiac medications, advised daily aspirin for now. Patient agreeable to this plan. Return precautions discussed <Paul Maier MD - Last Filed: 12/23/23 22:32> Lab Data Labs: Lab Results 12/23/23 12/23/23 Range/Units 05:36 07:36 WBC 4.4 L (4.5-11.0) X10^3/uL RBC 4.60 (4.0-5.2) X10^6/uL Hgb 14.4 (12.0-16.0) g/dL Hct 43.2 (36-46) % MCV 93.9 (80-100) fL MCH 31.3 (26-34) PG MCHC 33.3 (30-36) % RDW 13.9 (11.6-14.8) % Plt Count 202 (150-400) X10^3/uL Neut % (Auto) 52.2 (50-75) % Lymph % (Auto) 32.0 (25-40) % [place] % (Auto) 10.2 (3-14) % Eos % (Auto) 4.8 H (2-4) % Baso % (Auto) 0.8 (0-2) % Neut # (Auto) 2300 (8332-4909) /uL Lymph # (Auto) 1400 (4012-5795) /uL [place] # (Auto) 400 (0-900) /uL Eos # (Auto) 200 (0-450) /uL Baso # (Auto) 0 (0-100) /uL PT 11.3 (9.4-12.5) SECONDS INR 1.0 (0.9-1.3) APTT 34 (25.1-36.5) SECONDS Sodium 140 (137-145) mmol/L Potassium 3.8 (3.4-5.1) mmol/L Chloride 107 (98-107) mmol/L Carbon Dioxide 30 (22-32) mmol/L BUN 16 (7-17) mg/dL Creatinine 0.69 (0.52-1.04) mg/dL Estimated GFR > 60 (>60) mL/min BUN/Creatinine Ratio 23.2 H (6-22) Glucose 85 (80-110) mg/dL Calcium 10.3 H (8.4-10.2) mg/dL Magnesium 2.1 (1.6-2.3) mg/dL Total Bilirubin 0.7 (0.2-1.3) mg/dL AST 30 (14-36) IU/L ALT 18 (<35) IU/L Alkaline Phosphatase 73 (38-126) U/L Total Creatine Kinase 92 (30-135) U/L Troponin I < 0.012 < 0.012 (0.01-0.034) ng/mL Total Protein 7.3 (6.3-8.2) g/dL Albumin 4.3 (3.5-5.0) g/dL Globulin 3.0 (1.7-4.1) g/dL Albumin/Globulin Ratio 1.4 (1.0-2.8) Lipase 106 (23-300) U/L MDM Narrative Medical decision making narrative: 83-year-old with so sternal chest pressure that woke her from sleep lasted 15-20 minutes and then resolved. She has had 1 prior episode 2 months ago that also woke her from sleep. She has not had any additional episodes. Review patient's EMR does show she had a myocardial perfusion test that was a low risk study with normal left ventricular function in May of 2022. Her echo at that time showed an EF of 50-55%. Labs today show white count of 4.4, hemoglobin of 14.4 with platelets of 202, INR of 1, sodium 140 potassium 3.8 chloride of 107 CO2 of 30 BUN 16 creatinine 0.69 glucose 85 calcium 10.3, LFTs are negative CK is 92. Troponin is less than 0.012 Chest x-ray, prelim read EKG, shows no acute changes today. Patient signed out to Dr. Maier while awaiting repeat troponin. Darrion, 12/23/2023 7:00 a.m., received sign-out from Dr. Palumbo, repeat troponin and disposition plan pending. 83-year-old female had 15 minutes of chest discomfort on wakening, substernal, nonradiating, without associated nausea vomiting or diaphoresis, resolved by itself without specific treatment, EKG looks similar to a 2016 comparison study, no obvious ST segment elevation or depression changes, patient believes she might have had a stress test couple of years ago with Dr. Valenzuela. Repeat troponin pending. Assumed care Repeat troponin also nonmeasurable negative. No recurrence of chest pain. Case discussed with cross covering physician Dr. Cherry, who will pass on clinical information to his partner PCP Dr. Valenzuela, patient instructed to call the office on Sunday, likely to be scheduled for outpatient chemical stress testing. Aspirin not listed on cardiac medications, advised daily aspirin for now. Patient agreeable to this plan. Return precautions discussed Discharge Plan Departure Patient Disposition: Home Clinical Impression: Chest pain Activity Restrictions/Additional Instructions: Resolved episode of chest discomfort, EKG and serial blood test did not show evidence for heart attack at this time, no recurrence of chest discomfort, consider taking daily aspirin. Case discussed with Dr Dilip olson covering physician for your regular provider Dr. Valenzuela, who advised calling office Sunday, to inquire about plans for outpatient chemical stress testing at this time. Take aspirin once daily for now. Return to this/nearest emergency department for any change worsening symptoms or any concerns prior Prescriptions: New aspirin 325 mg tablet 325 mg PO DAILY Qty: 30 0RF No Action loratadine [Claritin] 10 mg tablet 10 mg PO DAILY PRN (Reason: seasonal allergies) Calcium 500 + D tablet 1 tab PO QDAY Referrals: Nahum Valenzuela MD [Primary Care Provider] - Stand Alone Forms: Patient Portal/API
[2023-12-23 05:46] LABS: Add Manual Diff / Slide Review NO; Basophils Absolute Auto 0 /uL (0-100); Basophils Percent Auto 0.8 % (0-2); Eosinophils Absolute Auto 200 /uL (0-450); Eosinophils Percent Auto 4.8 % (2-4); Hematocrit 43.2 % (36-46); Hemoglobin 14.4 g/dL (12.0-16.0); Lymphocytes Absolute Auto 1400 /uL (1100-4500); Mean Corpuscular HGB Conc 33.3 % (30-36); Mean Corpuscular Hemoglobin 31.3 PG (26-34); Mean Corpuscular Volume 93.9 fL (80-100); Monocytes Absolute Auto 400 /uL (0-900); Monocytes Percent Auto 10.2 % (3-14); Neutrophils Absolute Auto 2300 /uL (1500-7000); Neutrophils Percent Auto 52.2 % (50-75); Platelet Count 202 X10^3/uL (150-400); Red Cell Distribution Width 13.9 % (11.6-14.8); White Blood Cell Count 4.4 X10^3/uL (4.5-11.0)
[2023-12-23 05:57] LABS: Prothrombin Time 11.3 SECONDS (9.4-12.5)
[2023-12-23 05:59] LABS: PTT Partial Thromboplastin Tim 34 SECONDS (25.1-36.5)
[2023-12-23 06:02] LABS: Alanine Aminotransferase 18 IU/L (<35); Albumin 4.3 g/dL (3.5-5.0); Albumin Globulin Ratio 1.4 (1.0-2.8); Alkaline Phosphatase 73 U/L (38-126); Aspartate Aminotransferase 30 IU/L (14-36); BUN Creatinine Ratio 23.2 (6-22); Bilirubin Total 0.7 mg/dL (0.2-1.3); Blood Urea Nitrogen 16 mg/dL (7-17); Calcium 10.3 mg/dL (8.4-10.2); Carbon Dioxide 30 mmol/L (22-32); Chloride 107 mmol/L (98-107); Creatine Kinase 92 U/L (30-135); Estimated Glomerular Filt Rate > 60 mL/min (>60); Glucose 85 mg/dL (80-110); HEMOLYSIS < 15 (0-50); Lipase 106 U/L (23-300); Magnesium 2.1 mg/dL (1.6-2.3); Potassium 3.8 mmol/L (3.4-5.1); Sodium 140 mmol/L (137-145); Total Protein 7.3 g/dL (6.3-8.2)
[2023-12-23 06:12] LABS: Troponin I < 0.012 ng/mL (0.01-0.034)
[2023-12-23 08:06] LABS: Troponin I < 0.012 ng/mL (0.01-0.034)
--- NOTE | 2023-12-23 08:48 | PC.NURSE ---
Assumed care of pt at 0700. Pt denies cp or pressure at this time. A&Ox4. Pt states that she is resting comfortably and that her cp has resolved.
== END 2023-12-23 09:07 | disposition home or self-care (01) ==
PROVIDERS: Emergency Medicine; Emergency Provider Emergency Medicine; PCP Family Medicine
DX: R07.9 Chest pain, unspecified (principal)
CPT/HCPCS: 36415; 71045; 80053; 82550; 83690; 83735; 84484; 85025; 85610; 85730; 93005; 99283; 99284

== ENCOUNTER → 2024-01-22 10:43 | Outpatient (CLI) | payer MEDICARE, OTHER, SELFPAY ==
--- NOTE | 2024-01-22 10:44 | DI.NM.S_ITS ---
PROCEDURE: NM LEANN PERF SPECT REST & STR Rest and exercise myocardial perfusion SPECT with gated imaging and ejection fraction RADIOPHARMACEUTICAL: 26 mCi Tc-99m sestamibi IV at rest and 23.5 mCi Tc-99m sestamibi IV at peak exercise. A two day-protocol was performed. INDICATIONS: Chest pressure x 2 episodes waking pt out of sleep TECHNIQUE: Radiopharmaceutical was injected at peak stress test, and also at rest. SPECT images were obtained. SPECT myocardial perfusion images were displayed in short axis, horizontal long axis, and vertical long axis views. Gated images were reviewed using [employer] software. COMPARISON: None. CARDIAC STRESS: A standard Andrew treadmill exercise tolerance test was performed by the patient under the supervision of an attending staff. The patient exercised for 5 minutes and 19 seconds; functional aerobic impairment (RINA) is -16%. Hemodynamic data: There is normal blood pressure and heart rate response to exercise stress. Patient achieved 98% of maximum predicted heart rate at peak exercise. Symptoms: Patient denied chest pain during exercise. EKG: No diagnostic EKG changes of ischemia; no ectopy. FINDINGS: Raw data: There is good myocardial labeling by radiotracer. No significant motion artifacts. Drrm-ju-siibe ratio is 0.26 (normal is less than 0.38 for sestamibi tracer, and less than 0.50 for thallium tracer). Left ventricle function: Gated images demonstrate normal left ventricle wall thickening. No segmental wall motion abnormality. No transient ischemic dilation; TID is 0.95 (normal less than 1.3). The left ventricle resting end-diastolic volume is 72 mL. Left ventricle stress ejection fraction is 70%; normal values are above 45%. Myocardial perfusion: There is a mildly intense fixed distal anterior wall defect that nearly resolves with prone imaging, suggesting breast attenuation artifact. No definite prior infarction. No ischemia. SSS 0. IMPRESSION: Low risk, normal treadmill nuclear stress test. 1) Mildly intense fixed distal anterior wall defect that nearly resolves with prone imaging, suggesting breast attenuation artifact. No definite prior infarction. No ischemia. SSS 0. 2) Normal left ventricular size, wall motion, and systolic function (EF post stress 70%). 3) No ST changes during exercise or recovery. 4) No angina during the study. 5) Good exercise tolerance (RINA -16%). Target heart rate reached. Appropriate BP response to exercise. 6) Compared to the nuclear stress test done 06/08/2022, no significant change. Dictated by: Reymundo De Guzman MD on 01/23/2024 at 14:52 Approved by: Reymundo De Guzman MD on 01/23/2024 at 14:57
== END ==
LOC: NUCM 10:44
PROVIDERS: PCP Family Medicine; Referring Provider Physician Assistant; Visit Provider Physician Assistant
DX: R07.89 Other chest pain (principal); E78.5 Hyperlipidemia, unspecified
CPT/HCPCS: 78452; 93017; A9502

== ENCOUNTER 2024-03-10 07:26 | Emergency (ER) | payer MEDICARE, OTHER, SELFPAY ==
[2024-03-10] VITALS (9 sets, daily range): BP systolic 139–170; BP diastolic 64–93; PULSE 57–75; RESP 18–33; TEMP 36.8; O2SAT 95–99; BMI 17.2
--- NOTE | 2024-03-10 08:00 | EKG_ITS ---
[address] [address] Test Date: 2024-03-10 Pat Name: Mendy Matthews Department: Room: Gender: Female Licensed Physical Therapist: ESSENCE : 1940 Requested By: Order Number: [id number] Reading MD: Kei Boss MD Measurements Intervals [place] Rate: 69 P: 64 AR: 164 QRS: -46 QRSD: 78 T: 29 QT: 366 QTc: 392 Interpretive Statements Normal sinus rhythm Left axis deviation Electronically Signed On 03-10-2024 8:19:49 PDT by Kei Boss MD
[2024-03-10 08:06] LABS: Add Manual Diff / Slide Review NO; Basophils Absolute Auto 100 /uL (0-100); Basophils Percent Auto 1.8 % (0-2); Eosinophils Absolute Auto 300 /uL (0-450); Eosinophils Percent Auto 7.1 % (2-4); Hematocrit 40.8 % (36-46); Hemoglobin 13.8 g/dL (12.0-16.0); Lymphocytes Absolute Auto 1500 /uL (1100-4500); Lymphocytes Percent Auto 34.3 % (25-40); Mean Corpuscular HGB Conc 33.9 % (30-36); Mean Corpuscular Hemoglobin 31.5 PG (26-34); Mean Corpuscular Volume 93.2 fL (80-100); Monocytes Absolute Auto 400 /uL (0-900); Neutrophils Absolute Auto 2100 /uL (1500-7000); Neutrophils Percent Auto 48.8 % (50-75); Platelet Count 186 X10^3/uL (150-400); Red Blood Cell Count 4.38 X10^6/uL (4.0-5.2); Red Cell Distribution Width 13.5 % (11.6-14.8); White Blood Cell Count 4.4 X10^3/uL (4.5-11.0)
--- NOTE | 2024-03-10 08:09 | ED_ITS ---
HPI - Abdominal Pain General Chief Complaint: Abdominal Pain Stated Complaint: abd pain x 1 week Time Seen by Provider: 03/10/24 07:59 Source: patient Mode of arrival: Ambulatory History of Present Illness HPI narrative: Patient is a 83-year-old female presenting today with abdominal pain. She reports that it goes all across her abdomen for about a week. She has no changes in bowel habits no fevers chills no nausea or vomiting no chest pain. She feels like it might be maybe a muscle strain but she has not sure what she did. She has no back pain. She has been taking Tylenol and ibuprofen and it has not been helping. Related Data Previous Rx's Medication Instructions Recorded esomeprazole magnesium 20 mg 20 mg PO DAILY #60 caps 02/12/24 capsule,delayed release estradiol 0.01% (0.1 mg/gram) 0.25 appful vaginal BEDTIME #42.5 02/12/24 vaginal cream grams Allergies Allergy/AdvReac Type Severity Reaction Status Date / Time latex [LATEX] Allergy Severe LOCAL RASH Verified 02/12/24 08:58 Pollen, dust Allergy Mild Sneezing Uncoded 02/12/24 08:58 Patient History Medical History Hypercalcemia Right wrist fracture (01/04/19) Herpes (~1979) Anemia (~1950) Acne (~1949) Cataract (~2011) Chicken pox (~194) Hearing loss (~2012) Hayfever (~194) Measles (~194) Osteoarthritis (~2003) Skin cancer (~1997) 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) (04/25/11) Neck pain Laceration Surgical History Anesthesia History of facelift (1999) History of hand surgery (~1999) History of hand surgery (~1999) Status post colposcopy (2010) Family History Brother Brain aneurysm Father Heart attack Social History marital status: household members: spouse Smoking Status: Never smoker alcohol intake: current Smoking Status: Never smoker alcohol intake frequency: 0-2 drinks per day Substance Use Type: does not use Exam Initial Vital Signs Initial Vital Signs: Vital Signs Pulse Rate 73 03/10/24 07:36 Pulse Oximetry 97 03/10/24 07:36 GENERAL: Alert well-appearing 83-year-old female and in no acute distress. HEENT: Head atraumatic,EOMI, pupils reactive, face symmetric, moist mucous membranes CARDIOVASCULAR: Regular rate and rhythm without murmurs, rubs or gallops. RESPIRATORY: Breath sounds equal bilaterally, no wheezes rales or rhonchi. ABDOMEN: Soft, Normoactive bowel sounds all 4 quadrants. No guarding or rebound. No distention no right upper quadrant pain no epigastric pain minimal periumbilical pain : No CVA tenderness EXTREMITIES: Normal range of motion, no clubbing or edema. Neurovascularly intact NEUROLOGICAL: Alert and oriented x4.Normal gait and speech. Cranial nerves II through XII grossly intact. SKIN: Warm, dry, no laceration, no petechiae, no rashes or lesions. Course Orders Ordered: Discontinued Medications Ketorolac Tromethamine (Ketorolac 30 Mg/Ml Vial) 15 mg IV NOW ONE Stop: 03/10/24 08:18 Last Admin: 03/10/24 08:25 Dose: 15 mg Documented By: ALPESH Ondansetron HCl (Ondansetron 4 Mg/2 Ml Inj) 4 mg IV NOW PRN PRN Reason: Nausea And Vomiting Ondansetron HCl (Ondansetron 4 Mg Odt) 4 mg PO NOW PRN PRN Reason: Nausea And Vomiting Vital Signs Vital signs: Vital Signs - 8 hr 03/10/24 07:36 03/10/24 07:38 03/10/24 08:01 Temperature 98.2 F Pulse Rate 73 75 68 Respiratory Rate 18 25 H Blood Pressure 170/77 H Pulse Oximetry 97 98 95 Oxygen Delivery Method Room Air 03/10/24 08:02 03/10/24 08:02 03/10/24 08:30 Temperature Pulse Rate 68 64 Respiratory Rate 33 H Blood Pressure 143/68 H Pulse Oximetry 96 97 Oxygen Delivery Method Room Air 03/10/24 08:30 03/10/24 09:00 03/10/24 09:01 Temperature Pulse Rate 57 L 58 L Respiratory Rate 22 22 Blood Pressure 143/91 H Pulse Oximetry 98 99 Oxygen Delivery Method 03/10/24 09:01 03/10/24 09:30 03/10/24 09:30 Temperature Pulse Rate 60 Respiratory Rate Blood Pressure 142/64 H 152/70 H Pulse Oximetry 98 Oxygen Delivery Method MDM - Abdominal Pain Lab Data 03/10/24 07:50 03/10/24 08:20 Labs: Lab Results 03/10/24 03/10/24 03/10/24 Range/Units 07:50 08:09 08:20 WBC 4.4 L (4.5-11.0) X10^3/uL RBC 4.38 (4.0-5.2) X10^6/uL Hgb 13.8 (12.0-16.0) g/dL Hct 40.8 (36-46) % MCV 93.2 (80-100) fL MCH 31.5 (26-34) PG MCHC 33.9 (30-36) % RDW 13.5 (11.6-14.8) % Plt Count 186 (150-400) X10^3/uL Neut % (Auto) 48.8 L (50-75) % Lymph % (Auto) 34.3 (25-40) % [place] % (Auto) 8.0 (3-14) % Eos % (Auto) 7.1 H (2-4) % Baso % (Auto) 1.8 (0-2) % Neut # (Auto) 2100 (1199-3277) /uL Lymph # (Auto) 1500 (3444-7483) /uL [place] # (Auto) 400 (0-900) /uL Eos # (Auto) 300 (0-450) /uL Baso # (Auto) 100 (0-100) /uL Sodium 138 (137-145) mmol/L Potassium 4.5 (3.4-5.1) mmol/L Chloride 107 (98-107) mmol/L Carbon Dioxide 26 (22-32) mmol/L BUN 19 H (7-17) mg/dL Creatinine 0.67 (0.52-1.04) mg/dL Estimated GFR > 60 (>60) mL/min BUN/Creatinine Ratio 28.4 H (6-22) Glucose 91 (80-110) mg/dL Calcium 10.1 (8.4-10.2) mg/dL Total Bilirubin 0.6 (0.2-1.3) mg/dL AST 27 (14-36) IU/L ALT 16 (<35) IU/L Alkaline Phosphatase 54 (38-126) U/L Total Protein 6.5 (6.3-8.2) g/dL Albumin 3.9 (3.5-5.0) g/dL Globulin 2.6 (1.7-4.1) g/dL Albumin/Globulin Ratio 1.5 (1.0-2.8) Lipase 98 (23-300) U/L Urine RBC None seen (0-5/HPF) Urine WBC None seen (0-5/HPF) Ur Squamous Epith Cells None seen (0-5/HPF) Urine Bacteria None seen (None) Ur Culture Indicated? Cult not indicated Vol Urine Centrifuged 10ml (spun) Point of care testing: Urine Dip Bedside Urine Glucose Negative Bedside Urine Bilirubin - Negative Bedside Urine Ketone - Negative Urine Specific [place] 1.020 Bedside Urine Occult Blood + Bedside Urine pH 6.5 Bedside Urine Protein - Negative Bedside Urine Urobilinogen - Negative Bedside Urine Nitrite - Negative Bedside Urine Leukocytes - Negative Esterase Imaging Data CT scan - abdomen/pelvis: Radiologist's Impression: PROCEDURE: CT ABDOMEN PELVIS W CON INDICATIONS: mid ab pain TECHNIQUE: After the administration of intravenous contrast, axial sections acquired from the lung bases to the pubic symphysis. Coronal and sagittal reformats were performed. For radiation dose reduction, the following was used: automated exposure control, adjustment of mA and/or kV according to patient size. COMPARISON: None. FINDINGS: Image quality: Diagnostic. Lower Chest: No significant findings. ABDOMEN: Liver: No solid mass. Benign-appearing scattered low-density liver lesions. Gallbladder: Gallbladder is somewhat distended. No gallbladder wall thickening or radiopaque stones. Biliary ducts: No biliary dilation. Pancreas: No ductal dilation. Spleen: Size is within normal limits. Adrenal Glands: No adrenal nodules. Kidneys and Ureters: No hydronephrosis. No solid mass. No complex renal cystic lesion which requires follow up. Stomach and Bowel: Normal colonic caliber, without significant wall thickening. Diverticulosis without evidence of acute diverticulitis. Peritoneum: No abnormal intraperitoneal fluid. No free air. Ventral Wall: No significant ventral hernia. Abdominal Nodes: No retroperitoneal or mesenteric adenopathy by size criteria. Vessels: Aorta and inferior vena cava are normal in size. Incidental note is made of a dilated refluxing left gonadal vein with left paraovarian varicosities. This is typically asymptomatic in this age group. PELVIS: Pelvic Organs: Unremarkable. Bladder: No bladder wall thickening, accounting for underdistention. Pelvic Nodes: No enlarged lymph nodes. Miscellaneous: No inguinal hernias are seen. Bones: No aggressive osseous abnormality. Scoliotic curvature and degenerative change. IMPRESSION: 1. No acute abdominal process noted. 2. Distended gallbladder without gallbladder wall thickening or radiopaque stones. 3. Diverticulosis without evidence of diverticulitis. Dictated by: Pete Iqbal M.D. on 03/10/2024 at 9:45 Approved by: Pete Iqbal M.D. on 03/10/2024 at 9:49 ECG Data Attestation: I personally reviewed and interpreted this ECG as follows: Interpretation: Normal sinus rhythm rate 69 ID interval 164 QRS [address] changes or T- wave inversions MDM Narrative Medical decision making narrative: Patient 83-year-old female presenting today with abdominal pain. It has been ongoing for about a week. Abdomen overall is pretty benign minimally tender no distention. She has no other symptoms. Blood work has been reviewed it is overall reassuring. WBC 4.4 hemoglobin 13.8 hematocrit 40.8 platelets 186, sodium 138 potassium 4.5 chloride 107 carbon dioxide 26 BUN 19 creatinine 0.67 glucose 91 bilirubin 0.6 AST 27 ALT 16 alk phos 54 lipase [address] scan has been reviewed without any cause for abdominal pain she does have a distended gallbladder without cholelithiasis or cholecystitis EKG reviewed as above no ischemia At this time no cause for her abdominal pain. She was given Toradol which helped slightly. At this time supportive care and recommend outpatient follow- up. Discharge Plan Departure Patient Disposition: Home Clinical Impression: Abdominal pain Instructions: DI for Abdominal Muscle Strain Activity Restrictions/Additional Instructions: *You have been diagnosed with abdominal pain *What to do: At this time no cause for abdominal pain is found. May try ice or heat. May need to follow up with PCP and have further testing and evaluation *Continue to take medications as directed *Follow up with your primary care provider in 2-3 days or call [phone] *Return to ER if you should have increasing pain nausea vomiting fever [or] any new, worsening or concerning symptoms Prescriptions: No Action estradiol 0.01 % (0.1 mg/gram) cream 0.25 appful vaginal BEDTIME Qty: 42.5 3RF Rx Instructions: apply small amount to fingertip and insert vaginally 2-3 time weekly esomeprazole magnesium 20 mg capsule,delayed release(DR/EC) 20 mg PO DAILY Qty: 60 1RF Rx Instructions: Take one capsule daily for reflux Referrals: Nahum Valenzuela MD [Primary Care Provider] - Stand Alone Forms: Patient Portal/API
[2024-03-10 08:16] LABS: Urine Volume 10mL (spun)
--- NOTE | 2024-03-10 08:17 | DI.CT.S_ITS ---
PROCEDURE: CT ABDOMEN PELVIS W CON INDICATIONS: mid ab pain TECHNIQUE: After the administration of intravenous contrast, axial sections acquired from the lung bases to the pubic symphysis. Coronal and sagittal reformats were performed. For radiation dose reduction, the following was used: automated exposure control, adjustment of mA and/or kV according to patient size. COMPARISON: None. FINDINGS: Image quality: Diagnostic. Lower Chest: No significant findings. ABDOMEN: Liver: No solid mass. Benign-appearing scattered low-density liver lesions. Gallbladder: Gallbladder is somewhat distended. No gallbladder wall thickening or radiopaque stones. Biliary ducts: No biliary dilation. Pancreas: No ductal dilation. Spleen: Size is within normal limits. Adrenal Glands: No adrenal nodules. Kidneys and Ureters: No hydronephrosis. No solid mass. No complex renal cystic lesion which requires follow up. Stomach and Bowel: Normal colonic caliber, without significant wall thickening. Diverticulosis without evidence of acute diverticulitis. Peritoneum: No abnormal intraperitoneal fluid. No free air. Ventral Wall: No significant ventral hernia. Abdominal Nodes: No retroperitoneal or mesenteric adenopathy by size criteria. Vessels: Aorta and inferior vena cava are normal in size. Incidental note is made of a dilated refluxing left gonadal vein with left paraovarian varicosities. This is typically asymptomatic in this age group. PELVIS: Pelvic Organs: Unremarkable. Bladder: No bladder wall thickening, accounting for underdistention. Pelvic Nodes: No enlarged lymph nodes. Miscellaneous: No inguinal hernias are seen. Bones: No aggressive osseous abnormality. Scoliotic curvature and degenerative change. IMPRESSION: 1. No acute abdominal process noted. 2. Distended gallbladder without gallbladder wall thickening or radiopaque stones. 3. Diverticulosis without evidence of diverticulitis. Dictated by: Pete Iqbal M.D. on 03/10/2024 at 9:45 Approved by: Pete Iqbal M.D. on 03/10/2024 at 9:49
[2024-03-10 08:22] LABS: Bacteria Urine None Seen; RBC Urine None Seen (0-5/HPF); Squamous Epithelial Cell Urine None Seen (0-5/HPF); WBC Urine None Seen (0-5/HPF)
[2024-03-10 08:23] LABS: Culture Indicated Urine Cult Not Indicated
[2024-03-10] MEDS: KETOROLAC 30 MG/ML VIAL 15 MG IV (08:25)
[2024-03-10 08:43] LABS: Alanine Aminotransferase 16 IU/L (<35); Albumin 3.9 g/dL (3.5-5.0); Albumin Globulin Ratio 1.5 (1.0-2.8); Alkaline Phosphatase 54 U/L (38-126); Aspartate Aminotransferase 27 IU/L (14-36); BUN Creatinine Ratio 28.4 (6-22); Bilirubin Total 0.6 mg/dL (0.2-1.3); Blood Urea Nitrogen 19 mg/dL (7-17); Calcium 10.1 mg/dL (8.4-10.2); Carbon Dioxide 26 mmol/L (22-32); Chloride 107 mmol/L (98-107); Estimated Glomerular Filt Rate > 60 mL/min (>60); Globulin 2.6 g/dL (1.7-4.1); Glucose 91 mg/dL (80-110); HEMOLYSIS < 15 (0-50); Lipase 98 U/L (23-300); Potassium 4.5 mmol/L (3.4-5.1); Sodium 138 mmol/L (137-145); Total Protein 6.5 g/dL (6.3-8.2)
== END 2024-03-10 10:15 | disposition home or self-care (01) ==
PROVIDERS: Emergency Provider Emergency Medicine; PCP Family Medicine
DX: R10.9 Unspecified abdominal pain (principal)
CPT/HCPCS: 36415; 74177; 80053; 81003; 81015; 83690; 85025; 93005; 96374; 99284; J1885; Q9967

== ENCOUNTER → 2024-04-14 07:41 | Outpatient (CLI) | payer MEDICARE, OTHER, SELFPAY ==
--- NOTE | 2024-04-14 07:42 | DI.NM.S_ITS ---
PROCEDURE: NM HIDA WITH CCK PHARMACEUTICAL: 5.5 mCi Tc-99m mebrofenin IV; 0.9 mcg CCK IV. INDICATIONS: bloating; weight loss; loss of appetite; abdominal pain TECHNIQUE: Following intravenous administration of Tc-99m mebrofenin, sequential anterior abdominal images were obtained. To evaluate the contractile response of the gallbladder in response to Cholecystokinin (CCK), sincalide (0.02 ?g/kg) was administered by slow intravenous infusion approximately 60 minutes after the administration of the radiopharmaceutical. Sequential imaging was continued for 30 minutes after the start of CCK infusion. Gallbladder ejection fraction was calculated. COMPARISON: [facility], US, US ABDOMEN LIMITED, 03/15/2024, 13:02. [facility], CT, CT ABDOMEN PELVIS W CON, 03/10/2024, 8:43. FINDINGS: Biliary scan: There is normal tracer uptake and excretion by the liver. There is normal visualization of the intrahepatic ducts, common bile duct, and gallbladder. There is normal tracer transit into the duodenum. CCK stimulation: There is mildly painful contractile response of the gallbladder to CCK infusion. The calculated gallbladder ejection fraction is 5% ; normal values are above 35%. It has been shown that any patient abdominal pain after CCK administration is related to the rate of CCK injection, rather than to any underlying gallbladder disease (Clinical Nuclear Medicine 2012; 37: 63-70. Journal of Nuclear Medicine 2014; 55: 1-9). IMPRESSION: Markedly decreased ejection fraction of 5%. Dictated by: Dorys Hutchison M.D. on 04/15/2024 at 14:22 Approved by: Dorys Hutchison M.D. on 04/15/2024 at 14:23
== END ==
PROVIDERS: PCP Family Medicine; Referring Provider Physician Assistant; Visit Provider Physician Assistant
DX: R10.10 Upper abdominal pain, unspecified (principal); R63.0 Anorexia; R14.0 Abdominal distension (gaseous)
CPT/HCPCS: 78227; A9537; J2805

== ENCOUNTER → 2024-08-06 08:24 | Outpatient (CLI) | payer MEDICARE, OTHER, SELFPAY ==
[2024-08-06 09:13] LABS: Add Manual Diff / Slide Review NO; Basophils Absolute Auto 100 /uL (0-100); Basophils Percent Auto 1.1 % (0-2); Eosinophils Absolute Auto 200 /uL (0-450); Eosinophils Percent Auto 4.4 % (2-4); Hemoglobin 13.8 g/dL (12.0-16.0); Lymphocytes Absolute Auto 1600 /uL (1100-4500); Lymphocytes Percent Auto 32.6 % (25-40); Mean Corpuscular HGB Conc 32.9 % (30-36); Mean Corpuscular Hemoglobin 29.8 PG (26-34); Mean Corpuscular Volume 90.6 fL (80-100); Monocytes Absolute Auto 300 /uL (0-900); Monocytes Percent Auto 6.8 % (3-14); Neutrophils Absolute Auto 2700 /uL (1500-7000); Neutrophils Percent Auto 55.1 % (50-75); Platelet Count 233 X10^3/uL (150-400); Red Blood Cell Count 4.64 X10^6/uL (4.0-5.2); Red Cell Distribution Width 15.1 % (11.6-14.8); White Blood Cell Count 4.9 X10^3/uL (4.5-11.0)
[2024-08-06 09:32] LABS: Cholesterol 268 mg/dL (140-199); HDL Cholesterol 100 mg/dL (40-60); LDL Cholesterol Calculated 152 mg/dL (<100); Triglycerides 81 mg/dL (35-150)
== END ==
PROVIDERS: PCP Student in an Organized Health Care Education/Training Program; Referring Provider Student in an Organized Health Care Education/Training Program; Visit Provider Student in an Organized Health Care Education/Training Program
DX: E78.5 Hyperlipidemia, unspecified (principal)
CPT/HCPCS: 36415; 80061; 84443; 85025

== ENCOUNTER 2024-10-26 01:02 | Emergency (ER) | payer MEDICARE, OTHER, SELFPAY ==
[2024-10-26] VITALS (7 sets, daily range): BP systolic 125–135; BP diastolic 65–70; PULSE 61–101; RESP 16; TEMP 36.8; O2SAT 94–100; BMI 17.6
--- NOTE | 2024-10-26 01:18 | PC.NURSE ---
Generalized rash to anterior and posterior torso. Hives to bilateral arms. No difficulty breathing or tightness of throat.Ongoing for the last month but was worse tonight. No recent changes to detergents, soap, lotion etc. Patient states she was taking eye drops and s/e was itching but she stopped taking that two weeks ago
--- NOTE | 2024-10-26 03:16 | ED_ITS ---
HPI - Allergic Reaction General Chief complaint: Allergic Reaction Stated complaint: Itching all over Time Seen by Provider: 10/26/24 01:15 Source: patient Mode of arrival: Ambulatory History of Present Illness HPI narrative: 84-year-old woman with no significant medical issues presents complaining of itching all over. She does have some minor insomnia, typically has a glass of wine to help get to sleep. She is trying to get have that have an tonight tried some new melatonin drops. Proximally half an hour later was when the significant itching started. She does not report wheezing or shortness of breath. On arrival in the emergency department she has fairly significant hives over much of her torso and abdomen. The hives over her on seemed to be receding slightly. 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 There has been no other new foods or exposures that she can recall recently. Related Data Home Medications Medication Instructions Recorded Confirmed doxycycline hyclate 100 mg capsule 100 mg PO DAILY Dry eyes 07/31/24 08/11/24 Previous Rx's Medication Instructions Recorded acyclovir 400 mg tablet 800 mg (2 x 400 mg) PO 3 X DAY #30 03/04/12 tabs Allergies Allergy/AdvReac Type Severity Reaction Status Date / Time latex [LATEX] Allergy Severe LOCAL RASH Verified 08/11/24 08:23 Pollen, dust Allergy Mild Sneezing Uncoded 08/11/24 08:23 Review of Systems Review of Systems Narrative: Pertinent positive and negative findings as per HPI Patient History Medical History Hypercalcemia Right wrist fracture (01/04/19) Herpes (~1979) Anemia (~1949) Acne (~1949) Cataract (~2011) Chicken pox (~1944) Hearing loss (~2012) Hayfever (~194) Measles (~194) Osteoarthritis (~2003) Skin cancer (~1997) 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) (04/25/11) Neck pain Laceration Surgical History Anesthesia History of facelift (1999) History of hand surgery (~1999) History of hand surgery (~1999) Status post colposcopy (2010) Family History Brother Brain aneurysm Father Heart attack Social History marital status: household members: spouse Smoking Status: Never smoker alcohol intake: current Smoking Status: Never smoker alcohol intake frequency: 0-2 drinks per day Exam Initial Vital Signs Initial Vital Signs: Vital Signs Temperature 98.2 F 10/26/24 01:11 Pulse Rate 101 H 10/26/24 01:11 Respiratory Rate 16 10/26/24 01:11 Blood Pressure 125/70 10/26/24 01:11 Pulse Oximetry 97 10/26/24 01:11 Oxygen Delivery Method Room Air 10/26/24 01:11 General: Alert appropriate in no acute distress Respiratory: Able to speak in full sentences, no obvious respiratory distress, no wheezing, no retractions Skin: Urticarial rash over abdomen and torso some over the flexor surfaces of her arms. Some involvement of the upper thighs. Neurologic: Grossly intact no obvious asymmetries or abnormalities Psych: appropriate insight and affect, cooperative Course Vital Signs Vital signs: Vital Signs - 8 hr 10/26/24 01:11 Temperature 98.2 F Pulse Rate 101 H Respiratory Rate 16 Blood Pressure 125/70 Pulse Oximetry 97 Oxygen Delivery Method Room Air MDM - Allergic Reaction MDM Narrative Medical decision making narrative: 84-year-old woman presents with urticarial rash and complaints of intense pruritus worse this evening. She notes that she did try new melatonin drops to help with sleep tonight. She also reports she has been having some urticarial issues over the last number of months. Physical exam shows urticarial rash over mostly her torso that does seem to be receding without specific intervention otherwise. No respiratory distress. She is given 60 mg of oral prednisone to help with the acute symptoms. We discussed using Benadryl to see if this might help with sleep rather than alcohol or the melatonin drops. This might help with the itching and insomnia. Did recommend avoiding those specific melatonin drops. In the past she has taken melatonin and pills without problem. We will recommend nonsedating antihistamine daily for the next week to avoid continued urticarial outbreak. There was no further evidence of systemic involvement, no indication for imaging, blood work or hospitalization at this time. Questions are answered and she is safe for discharge Discharge Plan Departure Patient Disposition: Home Clinical Impression: Urticaria Allergic reaction Qualifiers: Encounter type: initial encounter Qualified Code(s): T78.40XA - Allergy, unspecified, initial encounter Instructions: DI for Hives Activity Restrictions/Additional Instructions: Thank you for coming in today Something caused impressive hives free this evening. The fact that you try the new melatonin drops for sleep makes me suspect that it may be related to that. I would recommend not using that is specific preparation again. Since you have had luck with melatonin pills previously you can consider trying those. With your insomnia issues, you might consider trying Benadryl. Not only is this antihistamine to help with overall itching can help asleep. For the next week I am going to recommend that you take a nonsedating antihistamine daily. This is 1 of the [id number]-jyc-cnmcali medications such as Claritin, Monica, Zyrtec. These do not make you sleepy. Often times when you have such an impressive allergic reaction, your immune system remains on high alert and the allergy medications can help reduce that. If you find that your developing wheezing, tightness in your throat, swelling of your tongue or face you do need to returnto the emergency department Prescriptions: No Action doxycycline hyclate 100 mg capsule 100 mg PO DAILY acyclovir 400 mg tablet 800 mg PO 3 X DAY Qty: 30 3RF Referrals: Terri Anna MD [Primary Care Provider] - Stand Alone Forms: Patient Portal/API/Survey
[2024-10-26] MEDS: predniSONE 20 MG TABLET 60 MG PO (03:19)
== END 2024-10-26 03:31 | disposition home or self-care (01) ==
PROVIDERS: Emergency Provider Emergency Medicine; PCP Student in an Organized Health Care Education/Training Program
DX: T78.40XA Allergy, unspecified, initial encounter (principal)
CPT/HCPCS: 99283

== ENCOUNTER → 2024-12-18 16:47 | Outpatient (CLI) | payer MEDICARE, OTHER, SELFPAY ==
--- NOTE | 2024-12-18 16:49 | DI.MG.S_ITS ---
MM screening mammo BI: 12/18/2024. BI-RADS: 1 CLINICAL: 84-year old female for bilateral screening mammogram. Tyrer-Cuzick lifetime risk of 0.5%. No personal or first-degree family history of breast cancer. PRIOR EXAMS 12/05/2023, 09/27/2022, 08/07/2020, 06/05/2019, 05/30/2017, 05/20/2015. MAMMOGRAPHY TECHNIQUE: 2D and 3D (tomosynthesis) digital mammographic views obtained, with additional images as needed for full coverage. Current study was also evaluated with a Computer Aided Detection (CAD) system. DENSITY C. The breasts are heterogeneously dense, which may obscure small masses. MAMMOGRAPHY FINDINGS Bilateral: No suspicious mass, asymmetry, microcalcification, or other abnormality seen. IMPRESSION: * No evidence of malignancy. RECOMMENDATIONS Bilateral * Annual screening mammography. OVERALL ASSESSMENT CATEGORY BI-RADS-1: Negative. The [employer] recommends annual screening mammography beginning at age 40 for women with average risk of breast cancer. ELECTRONICALLY SIGNED: Kayden Stoddard M.D. on 12/19/2024 at 07:40:39 AM PT Interpreting Station ID: [id number]
== END ==
PROVIDERS: PCP Student in an Organized Health Care Education/Training Program; Referring Provider Family Medicine; Visit Provider Family Medicine
DX: Z12.31 Encounter for screening mammogram for malignant neoplasm of breast (principal); R92.333 Mammographic heterogeneous density, bilateral breasts
CPT/HCPCS: 77063; 77067

== ENCOUNTER 2025-04-14 10:45 | Outpatient (RCR) | payer MEDICARE, OTHER, SELFPAY ==
--- NOTE | 2025-01-28 16:00 | PT.OPPOC ---
Physical, Occupational & Speech Therapy At [facility] Current Diagnoses Urgency of urination (01/28/25) Visit Care Team Role Provider Type Nahum Valenzuela MD Attending Provider Physician Family Provider Primary Care Provider Referring Provider Specialty: Family Practice Address: [address] [place] [address], [address], [address] Email: [email or web address] Plan Of Care PT-OP-B Current Condition Start: 01/27/25 14:59 Freq: Status: Active Protocol: Document 01/28/25 08:15 [facility] (Rec: 01/28/25 08:39 [facility] [id number]) Current Condition History of Current Condition Onset Date one year ago Current Complaints urinary urgency History of Current pt reports she will be out and coming home and when she Condition drives into her garage she feels a strong urge to void , she does usually make it to the bathroom, another trigger is running water. She reports she empties her bladder frequently and just in case. She does have intermittent bowel leakage she notes once every couple of months. She does have a daily bowel movement and reports it is usually easy to pass. She goes to bed at 11 pm and wakes up at 6 am to void and then goes back to bed. Fluid intake include carbonated non sugar in a cup and fills it with water and drinks 3-4 cups per day and 0-1 cups of coffee per day. Mendy notes she has recently switched to decaf coffee. exercise includes line dancing every sunday night and she runs up and down the stairs in her house a lot. PT-OP-T Assessment and Plan Start: 01/27/25 14:59 Freq: Status: Active Protocol: Document 01/28/25 08:15 [facility] (Rec: 01/29/25 08:34 [facility] [id number]) Physical Therapy Assessment Rehab Potential Rehabilitation Excellent Potential Evaluation Complexity Number of Personal 0 Factors/ Comorbidities Number of Body 1-2 Systems Impaired Clinical Stable Presentation at Evaluation Impairments Impairments Activity Tolerance Other Impairments urinary urgency and urge incontinence symptoms Goals 3 Impairment pt lacks a home program for pelvic floor strengthening Junior Graphic Designer Goal (LTG) Mendy is independent with a HEP for pelvic floor strengthening LTG Duration 8 weeks 2 Impairment urinary urge incontinence and intermittent bowel incontinence Junior Graphic Designer Goal (LTG) With pelvic floor strengthening Mendy reports a overall reduction in urge incontinence and bowel incontinence LTG Duration 8 weeks 1 Impairment urinary urgency and frequency Short Term Goal (STG pt is given a bladder diary to track fluids and voids ) and is educated on the urge deference technique Custodial Goal (LTG) Mendy reports a overall reduction in urinary urgency and frequency LTG Duration 8 weeks Assessment Summary Assessment Mendy is a active 84 year old female who has chief complaints of urinary urgency that began approx 1 year ago. She reports it most often happens when she is driving home and ritchie her car in her garage. The urge will hit and she has to run into the house. She notes at times with this urgency she will leak and she wears panty liners for protection. She does often void just in case. She also reports intermittent bowel leakage every couple of months. Time was spent educating Mendy on bladder irritants today. She was educated in use of a bladder diary for the next two weeks to track voids. She was educated on the urge deference technique and bladder retraining. With external pelvic floor exam Mendy was able to facilitate a pelvic floor contraction and was able to perform quick flicks to be used for the urge deference technique. Mendy may also benefit from pelvic floor endurance training to assist with improved bladder and rectal support. Physical Therapy Plan Frequency and Duration Frequency of 1x/Week Treatment Duration of 8 treatment (weeks) Plan of Care Start 01/28/25 Date Plan of Care End 03/25/25 Date Therapeutic Interventions Therapeutic Home Exercise Program,Neuromuscular Re-education, Interventions Patient/Caregiver Education,Self-Care/Home Management, Therapeutic Exercises Modalities Biofeedback Next Visit Focus/Plan Next Note Type Treatment Note Next Visit Plan check in with bladder diary and how pt did with urge deference technique. Begin pelvic floor endurance training Plan of Care Dates Plan of Care Start Date 01/28/25 Plan of Care End Date 03/25/25 Electronically Signed by: Crystal Ortiz, PT 01/29/25 0844 If you are in agreement with this Plan of Care, please return a signed and dated copy. I have reviewed this Plan of Care and certify that the skilled therapy services above are required to meet the patient?s needs. Physician Signature Date Printed Name and Credentials Clinical Instructor Signature Printed Name and Credentials
--- NOTE | 2025-01-28 16:00 | PT.OIE ---
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) (04/25/11) Right wrist fracture (01/04/19) Skin cancer (~1997) Past Surgical History (Last Reviewed 10/26/24 @ 03:18 by Nesha Butler MD) Anesthesia History of facelift (1999) History of hand surgery (~1999) History of hand surgery (~1999) Status post colposcopy (2010) Visit Care Team Role Provider Type Nahum Valenzuela MD Attending Provider Physician Family Provider Primary Care Provider Referring Provider Specialty: [facility] Address: [address] [place] [address], [address], [facility] Email: [email or web address] Physical Therapy Initial Evaluation PT-OP-A Visit Information Start: 01/27/25 14:59 Freq: Status: Active Protocol: Document 01/28/25 08:10 [facility] (Rec: 01/28/25 08:39 [facility] [id number]) Out-Patient Physical Therapy Visit Information Visit Information Visit Type Initial Evaluation Visit Start Time 08:15 Visit Stop Time 09:00 Visit Number 1 Evaluation Information Evaluation Date 01/28/25 PT-OP-B Current Condition Start: 01/27/25 14:59 Freq: Status: Active Protocol: Document 01/28/25 08:15 [facility] (Rec: 01/28/25 08:39 [facility] [id number]) Current Condition History of Current Condition Onset Date one year ago Current Complaints urinary urgency History of Current pt reports she will be out and coming home and when she Condition drives into her garage she feels a strong urge to void , she does usually make it to the bathroom, another trigger is running water. She reports she empties her bladder frequently and just in case. She does have intermittent bowel leakage she notes once every couple of months. She does have a daily bowel movement and reports it is usually easy to pass. She goes to bed at 11 pm and wakes up at 6 am to void and then goes back to bed. Fluid intake include carbonated non sugar in a cup and fills it with water and drinks 3-4 cups per day and 0-1 cups of coffee per day. Mendy notes she has recently switched to decaf coffee. exercise includes line dancing every sunday night and she runs up and down the stairs in her house a lot. PT-OP-C Subjective Start: 01/27/25 14:59 Freq: Status: Active Protocol: Document 01/28/25 08:15 [facility] (Rec: 01/29/25 08:30 [facility] [id number]) Patient Questionnaires Pelvic Pain and Urgency/Frequency Patient Symptom Scale Pelvic Pain Score 3 PT-OP-I Pelvic Floor Start: 01/27/25 14:59 Freq: Status: Active Protocol: Document 01/28/25 08:15 [facility] (Rec: 01/29/25 08:30 [facility] [id number]) Pelvic Floor Assessment Urine Pelvic Floor Surgery No Urinary Symptoms Urge Sensation Other Urinary urinary urgency when driving home and parking car, pt Symptoms needs to run into the house to void, or with running water Leakage Size Small Leakage Cause Urge Leaks Per Day 2 Urine Pad Type Panty Liner Pelvic Clock Pelvic Clock Other external pelvic floor assessment performed and Mendy is able to facilitate contraction of her pelvic floor. She was educated in pelvic floor quick contractions today Contraction Ability Voluntary Weak Contraction Voluntary Relaxation Weak Muscle Endurance ( 5 Seconds) Comments Pelvic Floor able to perform quick contractions, endurance limited Comments to 5 seconds PT-OP-Q Treatments Start: 01/27/25 14:59 Freq: Status: Active Protocol: Document 01/28/25 08:49 [facility] (Rec: 01/28/25 08:53 [facility] [id number]) Self-Care/Home Management Treatment Education Patient Education Home Exercise Program Other Education pt was given a bladder diary to begin tracking daily voids, fluid intake, and urgency She was educated on pelvic floor facilitation and was taught how to perform pelvic floor quick contractions. She was educated on the urge deference technique and the use of quick pelvic floor contractions to retrain the bladder She was educated on bladder irritants and Mendy notes she has already switched from caffeine to decaf . PT-OP-T Assessment and Plan Start: 07/01/25 14:59 Freq: Status: Active Protocol: Document 01/28/25 08:15 [facility] (Rec: 01/29/25 08:34 [facility] [id number]) Physical Therapy Assessment Rehab Potential Rehabilitation Excellent Potential Evaluation Complexity Number of Personal 0 Factors/ Comorbidities Number of Body 1-2 Systems Impaired Clinical Stable Presentation at Evaluation Impairments Impairments Activity Tolerance Other Impairments urinary urgency and urge incontinence symptoms Goals 3 Impairment pt lacks a home program for pelvic floor strengthening Economic Development Director Goal (LTG) Mendy is independent with a HEP for pelvic floor strenghtening LTG Duration 8 weeks 2 Impairment urinary urge incontinence and intermittent bowel incontinence Economic Development Director Goal (LTG) With pelvic floor strengthening Mendy reports a overall reduction in urge incontinence and bowel incontinence LTG Duration 8 weeks 1 Impairment urinary urgency and frequency Short Term Goal (STG pt is given a bladder diary to track fluids and voids ) and is educated on the urge deference technique Senior Care Goal (LTG) Mendy reports a overall reduction in urinary urgency and frequency LTG Duration 8 weeks Assessment Summary Assessment Mendy is a active 84 year old female who has chief complaints of urinary urgency that began approx 1 year ago. She reports it most often happens when she is driving home and ritchie her car in her garage. The urge will hit and she has to run into the house. She notes at times with this urgency she will leak and she wears panty liners for protection. She does often void just in case. She also reports intermittent bowel leakage every couple of months. Time was spent educating Mendy on bladder irritants today. She was educated in use of a bladder diary for the next two weeks to track voids. She was educated on the urge deference technique and bladder retraining. With external pelvic floor exam Mendy was able to facilitate a pelvic floor contraction and was able to perform quick flicks to be used for the urge deference technique. Mendy may also benefit from pelvic floor endurance training to assist with improved bladder and rectal support. Physical Therapy Plan Frequency and Duration Frequency of 1x/Week Treatment Duration of 8 treatment (weeks) Plan of Care Start 01/28/25 Date Plan of Care End 03/25/25 Date Therapeutic Interventions Therapeutic Home Exercise Program,Neuromuscular Re-education, Interventions Patient/Caregiver Education,Self-Care/Home Management, Therapeutic Exercises Modalities Biofeedback Next Visit Focus/Plan Next Note Type Treatment Note Next Visit Plan check in with bladder diary and how pt did with urge deference technique. Begin pelvic floor endurance training
--- NOTE | 2025-02-18 16:03 | PT.OTN ---
Current Diagnoses Urgency of urination (02/18/25) Physical Therapy Treatment Note PT-OP-A Visit Information Start: 01/27/25 14:59 Freq: Status: Active Protocol: Document 02/18/25 10:43 [facility] (Rec: 02/18/25 11:31 [facility] [id number]) Out-Patient Physical Therapy Visit Information Visit Information Visit Type Treatment Note Visit Start Time 10:45 Visit Stop Time 11:15 Visit Number 2 Evaluation Information Evaluation Date 01/28/25 PT-OP-B Current Condition Start: 01/27/25 14:59 Freq: Status: Active Protocol: Document 01/28/25 08:15 [facility] (Rec: 01/28/25 08:39 [facility] [id number]) Current Condition History of Current Condition Onset Date one year ago Current Complaints urinary urgency History of Current pt reports she will be out and coming home and when she Condition drives into her garage she feels a strong urge to void , she does usually make it to the bathroom, another trigger is running water. She reports she empties her bladder frequently and just in case. She does have intermittent bowel leakage she notes once every couple of months. She does have a daily bowel movement and reports it is usually easy to pass. She goes to bed at 11 pm and wakes up at 6 am to void and then goes back to bed. Fluid intake include carbonated non sugar in a cup and fills it with water and drinks 3-4 cups per day and 0-1 cups of coffee per day. Mendy notes she has recently switched to decaf coffee. exercise includes line dancing every sunday night and she runs up and down the stairs in her house a lot. PT-OP-C Subjective Start: 01/27/25 14:59 Freq: Status: Active Protocol: Document 02/18/25 10:43 [facility] (Rec: 02/18/25 11:31 [facility] [id number]) OP-PT Subjective Patient Comments Patient Comments pt notes she has been able to use the urge technique and was able to control herself to the bathroom. She is feeling encouraged by her progress and more in control of her bladder PT-OP-I Pelvic Floor Start: 01/27/25 14:59 Freq: Status: Active Protocol: Document 01/28/25 08:15 [facility] (Rec: 01/29/25 08:30 [facility] [id number]) Pelvic Floor Assessment Urine Pelvic Floor Surgery No Urinary Symptoms Urge Sensation Other Urinary urinary urgency when driving home and parking car, pt Symptoms needs to run into the house to void, or with running water Leakage Size Small Leakage Cause Urge Leaks Per Day 2 Urine Pad Type Panty Liner Pelvic Clock Pelvic Clock Other external pelvic floor assessment performed and Mendy is able to facilitate contraction of her pelvic floor. She was educated in pelvic floor quick contractions today Contraction Ability Voluntary Weak Contraction Voluntary Relaxation Weak Muscle Endurance ( 5 Seconds) Comments Pelvic Floor able to perform quick contractions, endurance limited Comments to 5 seconds PT-OP-Q Treatments Start: 01/27/25 14:59 Freq: Status: Active Protocol: Document 02/18/25 10:43 [facility] (Rec: 02/18/25 11:31 [facility] [id number]) Therapeutic Exercises Supine Exercises adductor assist with pelvic floor squeeze Supine Exercise Name pt was able to perform isolations of the pelvic floor better Reps/Minutes worked on 5 reps holding 10 seconds pelvic floor long holds Supine Exercise Name given for HEP Reps/Minutes 10 reps holding 10 seconds and relaxing x 10 seconds Self-Care/Home Management Treatment Education Patient Education Home Exercise Program Other Education review of urge deference technique and how pt was doing for home, she notes no leakage now and she is able to control the urge. She is still getting the urge but is able to control it. PT-OP-T Assessment and Plan Start: 01/27/25 14:59 Freq: Status: Active Protocol: Document 02/18/25 10:43 [facility] (Rec: 02/18/25 11:31 [facility] [id number]) Physical Therapy Assessment Goals 3 Impairment pt lacks a home program for pelvic floor strengthening Hadoop Application Developer Goal (LTG) Mendy is independent with a HEP for pelvic floor strenghtening good progress LTG Duration 8 weeks 2 Impairment urinary urge incontinence and intermittent bowel incontinence [facility] Goal (LTG) With pelvic floor strengthening Mendy reports a overall reduction in urge incontinence and bowel incontinence excellent progress and Mendy has not experienced any leaking since her initial evaluation on 01/28/25 LTG Duration 8 weeks 1 Impairment urinary urgency and frequency Short Term Goal (STG pt is given a bladder diary to track fluids and voids ) and is educated on the urge deference technique goal met [facility] Goal (LTG) Mendy reports a overall reduction in urinary urgency and frequency excellent progress LTG Duration 8 weeks Assessment Summary Assessment Mendy reports she is doing really well with the urge deference technique and has not had any episodes of leaking with a urge since her initial evaluation. I did start her today with long holds for the pelvic floor for endurance training. She has had 2 episodes of fecal incontinence this past year and with endurance training of the pelvic floor the strength could help with improving support to her bowels. She was able to sustain her pelvic floor x 10 seconds in supine x 10 reps. She was shown both with a ball for adductor assist and without with pelvic floor isolations. She did best with the isolations and could feel a good contraction of her pelvic floor. Because she is doing so well I feel she is able to do these exercises on her own and then recheck in a month. I am extending her plan of care so that she can work on her own and then recheck in with PT x 1 visit. Physical Therapy Plan Frequency and Duration Frequency of 1x/Week Treatment Duration of 8 treatment (weeks) Plan of Care Start 02/18/25 Date Plan of Care End 04/15/25 Date Therapeutic Interventions Therapeutic Home Exercise Program,Neuromuscular Re-education, Interventions Patient/Caregiver Education,Self-Care/Home Management, Therapeutic Exercises Modalities Biofeedback Next Visit Focus/Plan Next Note Type Treatment Note Next Visit Plan check in with how Mendy is doing with her endurance holds of the pelvic floor next visit
--- NOTE | 2025-04-14 11:25 | PT.OTN ---
Current Diagnoses Urgency of urination (04/14/25) Physical Therapy Treatment Note PT-OP-A Visit Information Start: 01/27/25 14:59 Freq: Status: Active Protocol: Document 04/14/25 10:45 [facility] (Rec: 04/14/25 11:24 [facility] [id number]) Out-Patient Physical Therapy Visit Information Visit Information Visit Type Re-Evaluation Visit Start Time 10:45 Visit Stop Time 11:15 Visit Number 3 PT-OP-B Current Condition Start: 01/27/25 14:59 Freq: Status: Active Protocol: Document 01/28/25 08:15 [facility] (Rec: 01/28/25 08:39 [facility] [id number]) Current Condition History of Current Condition Onset Date one year ago Current Complaints urinary urgency History of Current pt reports she will be out and coming home and when she Condition drives into her garage she feels a strong urge to void , she does usually make it to the bathroom, another trigger is running water. She reports she empties her bladder frequently and just in case. She does have intermittent bowel leakage she notes once every couple of months. She does have a daily bowel movement and reports it is usually easy to pass. She goes to bed at 11 pm and wakes up at 6 am to void and then goes back to bed. Fluid intake include carbonated non sugar in a cup and fills it with water and drinks 3-4 cups per day and 0-1 cups of coffee per day. Mendy notes she has recently switched to decaf coffee. exercise includes line dancing every sunday night and she runs up and down the stairs in her house a lot. PT-OP-C Subjective Start: 01/27/25 14:59 Freq: Status: Active Protocol: Document 04/14/25 10:45 [facility] (Rec: 04/14/25 11:24 [facility] [id number]) OP-PT Subjective Patient Comments Patient Comments pt feels like she is getting better with urge technique , no leakage since she was here last in January. She does still have the intermittent small amount of stool incontinence. She reports working on her long holds but feeling that she isn't able to feel if she is holding the full amount of time. PT-OP-I Pelvic Floor Start: 01/27/25 14:59 Freq: Status: Active Protocol: Document 01/28/25 08:15 [facility] (Rec: 01/29/25 08:30 [facility] [id number]) Pelvic Floor Assessment Urine Pelvic Floor Surgery No Urinary Symptoms Urge Sensation Other Urinary urinary urgency when driving home and parking car, pt Symptoms needs to run into the house to void, or with running water Leakage Size Small Leakage Cause Urge Leaks Per Day 2 Urine Pad Type Panty Liner Pelvic Clock Pelvic Clock Other external pelvic floor assessment performed and Mendy is able to facilitate contraction of her pelvic floor. She was educated in pelvic floor quick contractions today Contraction Ability Voluntary Weak Contraction Voluntary Relaxation Weak Muscle Endurance ( 5 Seconds) Comments Pelvic Floor able to perform quick contractions, endurance limited Comments to 5 seconds PT-OP-Q Treatments Start: 01/27/25 14:59 Freq: Status: Active Protocol: Document 04/14/25 10:45 [facility] (Rec: 04/14/25 11:24 [facility] [id number]) Therapeutic Exercises Supine Exercises bridges Reps/Minutes x 8 Comments cues to engage the pelvic floor first prior to a bridge happy baby Reps/Minutes hold 1-2 min pelvic floor long holds Supine Exercise Name given for HEP Reps/Minutes 10 reps holding 10 seconds and relaxing x 10 seconds Comments tried with pelvis elevated Self-Care/Home Management Treatment Education Patient Education Home Exercise Program Other Education review of urge deference technique and Mendy was given a new handout for home as she could not find hers She notes she has been able to control the urges She was educated on the use of a kegel egg for proprioception as it is difficult for her to feel if she is holding the full 10 seconds. She was also educated on using a wedge to elevate her pelvis PT-OP-T Assessment and Plan Start: 01/27/25 14:59 Freq: Status: Active Protocol: Document 04/14/25 10:45 [facility] (Rec: 04/14/25 11:24 [facility] [id number]) Physical Therapy Assessment Goals 3 Impairment pt lacks a home program for pelvic floor strengthening Child Welfare Consultant Goal (LTG) Mendy is independent with a HEP for pelvic floor strenghtening good progress LTG Duration 8 weeks 2 Impairment urinary urge incontinence and intermittent bowel incontinence Assisted Goal (LTG) With pelvic floor strengthening Mendy reports a overall reduction in urge incontinence and bowel incontinence excellent progress and Mendy has not experienced any leaking since her initial evaluation on 01/28/25 LTG Duration 8 weeks 1 Impairment urinary urgency and frequency Short Term Goal (STG pt is given a bladder diary to track fluids and voids ) and is educated on the urge deference technique goal met Assisted Goal (LTG) Mendy reports a overall reduction in urinary urgency and frequency excellent progress LTG Duration 8 weeks Assessment Summary Assessment Mendy is doing much better overall and has not been experiencing leakage with urinary urgency. She does still experience intermittent small amounts of fecal soiling. She is working on the pelvic floor endurance holds for this and it is still difficult for her to hold the time study observer. She was offered EMG biofeedback but declined. She was also educated about using a kegel egg as a means of increased proprioception for improved sensation for her pelvic floor contractions and she plans on getting this to help support her. She was also shown elevating her pelvis with a wedge or pillow and she could feel her pelvic floor more in this position and plans on trying this for home. At this point she would like to work Ind with a HEP and she will be DC from PT today with these tools to work independently Physical Therapy Plan Discharge Physical Therapy Discharge Comments Mendy is independent with her HEP and will be discharged at this time
== END 2025-04-20 10:39 | disposition home or self-care (01) ==
LOC: PHYS 10:45
PROVIDERS: Family Provider Family Medicine; PCP Family Medicine; Referring Provider Family Medicine; Visit Provider Family Medicine
DX: R39.15 Urgency of urination (principal)
CPT/HCPCS: 97110; 97161; 97535

== ENCOUNTER → 2025-06-11 08:56 | Outpatient (CLI) | payer MEDICARE, OTHER, SELFPAY ==
--- NOTE | 2025-06-11 08:59 | DI.RAD.S_ITS ---
PROCEDURE: XR KNEE RT 3V INDICATIONS: rt knee pain TECHNIQUE: 3 views of the knee were acquired. COMPARISON: None. FINDINGS: Bones: No fractures or dislocations. 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 No significant patellar subluxation. No suspicious bony lesions. Soft tissues: No joint effusion. No suspicious soft tissue calcifications. IMPRESSION: Moderate tricompartmental osteoarthritis as above. No fracture or dislocation. No significant joint effusion. Dictated by: Kain Garcia M.D. on 06/11/2025 at 11:27 Approved by: Kain Garcia M.D. on 06/11/2025 at 11:28
== END ==
PROVIDERS: PCP Family Medicine; Referring Provider Family Medicine; Visit Provider Family Medicine
DX: M17.11 Unilateral primary osteoarthritis, right knee (principal); M25.569 Pain in unspecified knee
CPT/HCPCS: 73562